=== PATIENT | female | born 1930 | race Caucasian/White ===

== ENCOUNTER 2018-11-23 17:24 | Inpatient (IN) ==
[2018-11-23] MEDS ORDERED: 0.9 % Sodium Chloride 1,000 ML IVC ONE ×2 (18:04→19:02)
[2018-11-23 18:23] LABS: Basophils % 0.3 %; Eosinophils % 0.1 %; Hemoglobin 13.4 g/dL (11.5-15.4); Immature Granulocytes % 0.4 % (0-4); Lymphocytes # 1.3 K/mcL (0.6-4.6); Lymphocytes % 9.7 %; Mean Corpuscular HGB Conc 32.7 g/dL (31.6-35.5); Mean Corpuscular Hemoglobin 30.1 pg (28.0-33.3); Mean Corpuscular Volume 92.1 fL (83.0-100.0); Mean Platelet Volume 11.1 fL (9.4-12.4); Monocytes # 0.8 K/mcL (0.0-1.3); Monocytes % 5.9 %; Neutrophils # 11.4 K/mcL (1.6-8.9); Platelet Count 232 K/mcL (140-400); Red Blood Count 4.45 M/mcL (3.82-4.97); Red Cell Distribution Width 13.3 % (11.5-14.5); Segmented Neutrophils % 83.6 %; White Blood Count 13.6 K/mcL (4.3-11.1)
[2018-11-23 18:36] LABS: Bilirubin,Urine Negative (Negative); Blood,Urine Large (Negative); Clarity,Urine Turbid (Clear); Color,Urine Dark Yellow (Yellow); Glucose,Urine (UA) Normal (Normal); Ketones,Urine 15 mg/dL (Negative); Leukocyte Esterase,Urine Large (Negative); Nitrite,Urine Positive (Negative); Protein,Urine 100 mg/dL (Neg-Trace); Specific Gravity,Urine > 1.030 (1.010-1.025); Urobilinogen,Urine Normal (Normal)
[2018-11-23 18:41] LABS: Bacteria,Urine Many per hpf (None-Few); Hyaline Casts,Urine None Seen per lpf (None-Few); Squamous Epithelial Cell,Urine Many per lpf (None-Few); WBC,Urine TNTC per hpf (0-3)
[2018-11-23 18:52] LABS: RBC,Urine 0-3 per hpf (0-3)
[2018-11-23] MEDS ORDERED: cefTRIAXone 2,000 MG in Water for inj. (sterile) 20 ML IVP ONE (18:52)
[2018-11-23 18:57] LABS: Calcium 10.3 mg/dL (8.6-10.3); Potassium 3.9 mEq/L (3.5-5.1); Troponin I 0.07 ng/mL (< 0.04)
--- NOTE | 2018-11-23 19:07 | Emergency Department Note ---
Disposition Clinical Impression: ANAMARIA (acute kidney injury) Rhabdomyolysis Qualifiers: Rhabdomyolysis type: traumatic Encounter type: initial encounter Qualified Code(s): T79.6XXA - Traumatic ischemia of muscle, initial encounter Fall Qualifiers: Encounter type: initial encounter Qualified Code(s): W19.XXXA - Unspecified fall, initial encounter Urinary tract infection Qualifiers: Urinary tract infection type: site unspecified Hematuria presence: without hematuria Qualified Code(s): N39.0 - Urinary tract infection, site not specified Disposition: Admitted As Inpatient Condition: Fair Time of Disposition: 19:56 Fall HPI - General Chief Complaint: ED Fall Stated Complaint: Fall Time Seen by Provider: 11/23/18 17:32 Source: patient, family, EMS Mode of arrival: EMS Limitations: no limitations Nursing Notes Reviewed: Yes Vital Signs Reviewed: Yes - History of Present Illness HPI Narrative: 88 yo female with no significant past medical history presents to the emergency department after being found on her bedroom floor by her family. Family states that the patient normally communicates with all of her children PIE well throughout the day. They had not heard from her and by this afternoon and b ecame concerned so they went to her house. Patient states that she did not follow-up with the family found her unconscious at the foot of her bed, covered in her own feces. Patient is only complaining of some right leg pain at this time. She denies headache, neck pain, chest pain, shortness of breath, abdominal pain, nausea and vomiting. - Related Data Allergies Allergy/AdvReac Type Severity Reaction Status Date / Time No Known Allergies Allergy Verified 11/23/18 17:58 All systems ED: reviewed and negative except as stated. Review of Systems: As Per HPI Constitutional: Denies: fever, weakness Cardiovascular: Denies: chest pain, palpitations, dyspnea on exertion Respiratory: Denies: cough, dyspnea, wheezes Gastrointestinal: Denies: abdominal pain, nausea, vomiting Genitourinary: Denies: dysuria, hematuria Musculoskeletal: Reports: arthralgia (Right hip/leg). Denies: back pain, neck pain Integumentary: Denies: rash Neurological: Denies: headache, weakness Endocrine: Denies: fatigue Fall PMH - Past Medical History Medical history: Reports: osteoporosis Psychiatric history: Reports: no psych history - Social History Smoking Status: Never smoker Alcohol use: Reports: none Drug use: Reports: none Physical Exam - General Limitations: no limitations General appearance: alert, in no apparent distress - Head Head exam: atraumatic, normocephalic - Eye Eye exam: Present: normal appearance, EOMI - ENT ENT exam: mucous membranes dry - Neck Neck exam: Present: normal inspection. Absent: tenderness, lymphadenopathy - Chest Chest inspection: Present: normal inspection. Absent: tenderness, rash - Respiratory Respiratory exam: Present: normal lung sounds bilaterally. Absent: wheezes - Cardiovascular Cardiovascular exam: Present: regular rate, normal rhythm - Abdominal Exam Abdominal exam: Present: soft, Non-Tender. Absent: distention, guarding, rebound, rigidity - Extremities Exam Extremities exam: Present: other (Tenderness to palpation of the right hip, no pain on movement of the right leg or with palpation of the right femur. Distal pulses intact on all 4 extremities. No evidence of bruising of any of the extremities.) - Back Exam Back exam: Present: normal inspection. Absent: tenderness - Neurological Exam Neurological exam: Present: alert, oriented X3 - Psychiatric Psychiatric exam: Present: normal affect, normal mood - Skin Skin exam: Present: warm, dry, intact Course Vital Signs Temperature 99 F 11/23/18 17:31 Pulse Rate 97 11/23/18 17:31 Respiratory Rate 12 11/23/18 17:31 Blood Pressure 189/73 11/23/18 17:31 O2 Sat by Pulse Oximetry 97 11/23/18 17:31 Temperature 99 F 11/23/18 17:31 Pulse Rate 89 11/23/18 19:23 Respiratory Rate 24 11/23/18 19:23 Blood Pressure 170/81 11/23/18 19:23 O2 Sat by Pulse Oximetry 94 11/23/18 19:23 Oxygen Delivery Oxygen Delivery Room Air Fall - [facility] Narrative Medical decision making narrative: Patient presents after being found down without last known well. She is alert and oriented now and is only complaining of right leg pain. We will obtain CT imaging of the head and neck without contrast and do x-rays of her chest, right hip and right femur due to her complaints of right leg pain. Since she has been down we will also perform cardiac workup with EKG, troponin, basic lab work and at on CPK and urinalysis to try to determine what caused her fall and determine if she is in rhabdomyolysis. Patient will be given a liter fluids at this time. 1909 - patient's troponin is elevated at 0.07, she has never been here before so is undetermined if this is new. CPK is 1500. She has had a slight increase in her creatinine. We will administer another liter of fluids to protect her from her rhabdo. Urinalysis shows signs of a urinary tract infection and the patient will also be given Rocephin. Awaiting imaging results at this time. 1929 - patient's head and neck CT, chest x-ray, right hip x-ray and right femur x-ray do not demonstrate any acute fractures or other injuries. Patient was told of her results and she is agreeable staying for IV hydration and antibiotics for her urinary tract infection. 1954 - patient has been accepted by the hospitalist at this time. - Medical Records Medical records reviewed: Yes I reviewed the patient's medical records. - Lab Data Lab results reviewed: Yes I reviewed the patient's lab results. Result diagrams: 11/23/18 18:05 11/23/18 18:05 Lab Results 11/23/18 11/23/18 11/23/18 Range/Units 18:05 18:05 18:20 WBC 13.6 H (4.3-11.1) K/mcL RBC 4.45 (3.82-4.97) M/mcL Hgb 13.4 (11.5-15.4) g/dL Hct 41.0 (35.3-44.9) % MCV 92.1 (83.0-100.0) fL MCH 30.1 (28.0-33.3) pg MCHC 32.7 (31.6-35.5) g/dL RDW 13.3 (11.5-14.5) % Plt Count 232 (140-400) K/mcL MPV 11.1 (9.4-12.4) fL Immature Gran % 0.4 (0-4) % Seg Neutrophils % 83.6 % Lymphocytes % 9.7 % Monocytes % 5.9 % Eosinophils % 0.1 % Basophils % 0.3 % Neutrophils # 11.4 H (1.6-8.9) K/mcL Lymphocytes # 1.3 (0.6-4.6) K/mcL Monocytes # 0.8 (0.0-1.3) K/mcL Eosinophils # 0.0 (0.0-0.6) K/mcL Basophils # 0.0 (0.0-0.2) K/mcL Sodium 141 (136-145) mEq/L Potassium 3.9 (3.5-5.1) mEq/L Chloride 101 (98-107) mEq/L Carbon Dioxide 23 (23-29) mEq/L BUN 40 H (8-23) mg/dL Creatinine 1.26 H (0.60-1.20) mg/dL Est GFR ( Amer) 49 L (> 60) Est GFR (Non-Af Amer) 40 L (> 60) BUN/Creatinine Ratio 32 H (6-26) Glucose 115 H (70-105) mg/dL Calculated Osmolality 303 H (280-300) Lactic Acid (0.5-2.2) mmol/L Calcium 10.3 (8.6-10.3) mg/dL Creatine Kinase 1508 H (30-223) Units/L Troponin I 0.07 H* (< 0.04) ng/mL Urine Color Dark Yellow (Yellow) Urine Clarity Turbid A (Clear) Urine pH 6.0 (5.0-8.0) pH Units Ur Specific [place] > 1.030 H (1.010-1.025) Urine Protein 100 H (Neg-Trace) mg/dL Urine Glucose (UA) Normal (Normal) mg/dL Urine Ketones 15 H (Negative) mg/dL Urine Blood Large H (Negative) Urine Nitrite Positive A (Negative) Urine Bilirubin Negative (Negative) Urine Urobilinogen Normal (Normal) mg/dL Ur Leukocyte Esterase Large H (Negative) Urine Microscopic RBC 0-3 (0-3) per hpf Urine Microscopic WBC TNTC H (0-3) per hpf Ur Squamous Epith Cells Many H (None-Few) per lpf Urine Bacteria Many H (None-Few) per hpf Hyaline Casts None Seen (None-Few) per lpf Ur Culture Indicated? YES A (NO) 11/23/18 Range/Units 18:23 WBC (4.3-11.1) K/mcL RBC (3.82-4.97) M/mcL Hgb (11.5-15.4) g/dL Hct (35.3-44.9) % MCV (83.0-100.0) fL MCH (28.0-33.3) pg MCHC (31.6-35.5) g/dL RDW (11.5-14.5) % Plt Count (140-400) K/mcL MPV (9.4-12.4) fL Immature Gran % (0-4) % Seg Neutrophils % % Lymphocytes % % Monocytes % % Eosinophils % % Basophils % % Neutrophils # (1.6-8.9) K/mcL Lymphocytes # (0.6-4.6) K/mcL Monocytes # (0.0-1.3) K/mcL Eosinophils # (0.0-0.6) K/mcL Basophils # (0.0-0.2) K/mcL Sodium (136-145) mEq/L Potassium (3.5-5.1) mEq/L Chloride (98-107) mEq/L Carbon Dioxide (23-29) mEq/L BUN (8-23) mg/dL Creatinine (0.60-1.20) mg/dL Est GFR ( Amer) (> 60) Est GFR (Non-Af Amer) (> 60) BUN/Creatinine Ratio (6-26) Glucose (70-105) mg/dL Calculated Osmolality (280-300) Lactic Acid 1.4 (0.5-2.2) mmol/L Calcium (8.6-10.3) mg/dL Creatine Kinase (30-223) Units/L Troponin I (< 0.04) ng/mL Urine Color (Yellow) Urine Clarity (Clear) Urine pH (5.0-8.0) pH Units Ur Specific [place] (1.010-1.025) Urine Protein (Neg-Trace) mg/dL Urine Glucose (UA) (Normal) mg/dL Urine Ketones (Negative) mg/dL Urine Blood (Negative) Urine Nitrite (Negative) Urine Bilirubin (Negative) Urine Urobilinogen (Normal) mg/dL Ur Leukocyte Esterase (Negative) Urine Microscopic RBC (0-3) per hpf Urine Microscopic WBC (0-3) per hpf Ur Squamous Epith Cells (None-Few) per lpf Urine Bacteria (None-Few) per hpf Hyaline Casts (None-Few) per lpf Ur Culture Indicated? (NO) - Radiology Data Radiology results reviewed: Yes I reviewed the patient's radiology results. - EKG Data EKG attestation: Yes I reviewed and interpreted this EKG. EKG results narrative: EKG obtained at 18:09 on 11/23/2018 Heart rate 96 bpm, PA interval 178, QRS duration 91, QT 349, QTC 441 Sinus rhythm with one premature ventricular complex. No signs of ST segment elevations or depressions. No acute T-wave abnormalities. Ultimately unchanged when compared to previous EKG dated 02/13/2014. Attestation Statement - Attestation Attestation: I have seen this patient with the resident physician, I have personally evaluated this patient. I had reviewed the chart and document dictation by the resident physician and aM in agreement with the information documented by the resident physician. Please see documentation by the resident physician for complete chart including past medical history, family medical history, review of systems, current history and physical and laboratory and imaging studies. I was present for all procedures, provided direct supervision for all procedures, was present for the entirety of all procedures and provided direct guidance during the procedures. Please see documentation by the resident physician for any procedures performed. I have reviewed all interpretations of EKGs, and reviewed all EKGs performed on patient's as well. I have also reviewed reports of imaging as provided by radiology. Patient was found today lying on the floor at the end of her bed covered in fe alta, by her family, they contact her every day via email did not hear from her since last night when checked on her today and found her on the floor. The patient does not remember how she got on the floor she does not believe she hit her head she does not even think she fell but she is not sure. On physical examination she is very dehydrated in appearance very dry. Oropharyngeal mucous membranes vital signs are within acceptable limits and cranial nerves are grossly intact. Lungs are clear heart reveals 2/6 systolic murmur no rubs no gallops abdomen is soft and nontender. Some mild tenderness of the right hip region but with normal range of motion without evidence of leg length discrepancy. Normal distal pulses, slightly decreased turgor. No focal neurologic findings. Head CT and cervical spine CT showed no acute findings. Chest x-ray and hip x-ray showed no acute findings. Patient was found have a UTI for which she received IV Rocephin mild leukocytosis of 13,000 no other acute abnormality in CBC, renal panel consistent with slightly increased creatinine of 1.26 up from 0.98, from approximately 3 years ago, nothing to suggest severe acute renal failure, her creatinine is not more than 1-1/2 times elevated from baseline, her total CPK was elevated at 1508 she was given a 2 L bolus of fluids. EKG was a sinus rhythm with no evidence of acute ischemia or dysrhythmia or hyperkalemia. Troponin was borderline at 0.07, most likely related to mild rhabdo, as well as dehydration and UTI, this will require further monitoring. Patient was admitted to the hospital for further evaluation and management of dehydration, elevated total CPK/rhabdomyolysis, UTI with borderline troponin elevation.
[2018-11-23] MEDS ORDERED: *HR* HYDROcodone/Acet 5/325 mg TABLET PO PRN (23:33)
[2018-11-23] MEDS ORDERED: Naloxone 0.4 MG/ML INJ IVP PRN (23:33)
--- NOTE | 2018-11-24 00:31 | Internal Med History&Physical ---
Date of Encounter: 11/23/18 Time of Encounter: 22:45 Internal Medicine - H&P: HPI Chief complaint: syncope; s/p fall Admitted From: Emergency Dept Plans for Post Hospital Care: Home History of present illness: Ms. Cao is an 88 year old female who presents the ER today after family found her on the ground, passed out, and down for an unknown period of time. She was brought to the ER where she had workup including imaging studies, lab data, and urinalysis. Imaging studies did not show any significant pathology and/or any fractures. Labs suggest mild acute kidney injury, rhabdomyolysis, troponin elevation, and UTI. EKG was unremarkable. Given her syncopal spell, rhabdomyolysis, and UTI, she was admitted to hospitalist service. Upon my assessment of the patient, there were several family members present at bedside. Patient is very hard of hearing and appears to be somewhat confused off and on during the conversation. 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 They state that she is only slightly off her baseline presently. Her son who found her is present at the bedside. He states he does not know how long she was down but suspects she was down for roughly 8 or 9 hours. He states she was passed out but easily arousable when he arrived at the home to assess her. She denies falling or injuring herself. However, she cannot recall the events of what led to her on the ground. She denies any sores or pain anywhere other than her chronic back pain. However, she has a little swelling of her lip and a chipped tooth which, according family, appears be new. She does have evidence of UTI, which could be leading to her slight confusion. Neither she nor her family members suggest any focal neurologic deficits. Patient states she normally ambulates at home with a walker and has limited mobility due to her chronic back pain. She denies any chest pain, shortness of breath, numbness, weakness, or paralysis. Past Med Surg Social Fam HX - Past Medical History Attestation: Yes The following information was validated with the patient. Source: patient, obtained from family Medical history: osteoporosis Psychiatric history: no psych history - Past Surgical History Surgical History: no surgical history - Social History Smoking Status: Never smoker Smokeless Tobacco Status: No Alcohol use: none Drug use: none Current living situation: Home - Independent Activity Level: Uses cane/walker Recent Out of Country Travel Within the Last 8 Weeks: No - Family History Mother Living Status: Hx Family Cardiac Disorders: No Hx Family Neurologic Disorders: No Father History Unknown: Yes Living Status: Internal Medicine - H&P: Meds Allergy/AdvReac Type Severity Reaction Status Date / Time No Known Allergies Allergy Verified 11/23/18 17:58 - Constitutional Constitutional: falls (today), no chills, no fever(s) - EENT Eyes: no blurry vision, no change in vision Ears: decreased hearing (chronic), no ear pain, no tinnitus Nose, mouth and throat: no nasal congestion, no sinus pressure, no sore throat - Cardiovascular Cardiovascular ROS IM: syncope, no chest pain, no dyspnea, no dyspnea on exertion, no edema, no irregular heart rhythm, no lightheadedness, no orthopnea, no palpitations - Respiratory Respiratory: no cough, no hemoptysis, no dyspnea on exertion, no wheezing, no chest congestion, no excessive phlegm production, no change in phlegm color - Gastrointestinal Gastrointestinal: no abdominal pain, no diarrhea, no nausea, no vomiting - Genitourinary Genitourinary: dysuria, no flank pain, no hematuria - Musculoskeletal Musculoskeletal ROS IM: no arthralgias, no back pain - Integumentary Integumentary IM: no rash, no jaundice - Neurological Neurological ROS: no disequilibrium, no dizziness, no focal weakness, no frequen t falls, no headache(s), no numbness, no vertigo, no weakness - Psychiatric Psychiatric: no anxiety, no depression - Endocrine Endocrine IM: no polydipsia, no polyuria - Allergic/Immunologic Allergic/Immunologic: no GI upset with certain foods - Constitutional Vitals: Temp Pulse Resp BP Pulse Ox 98.8 F 86 15 184/75 98 11/23/18 22:02 11/23/18 22:02 11/23/18 22:02 11/23/18 22:02 11/23/18 22:02 General appearance: Present: cooperative, A&O X 2, pleasant, no acute distress Exam: very hard of hearing; dehydrated; mildly confused - Head Head exam: Present: atraumatic, normal inspection - Eye Eye exam: Present: EOMI, PERRL. Absent: scleral icterus Pupils: Present: normal accommodation - ENT ENT exam: Present: mucous membranes dry, normal oropharynx Additional comments: mild upper lip swelling; chipped front tooth - Neck Neck exam general surgery: Present: full ROM, supple, trachea midline. Absent: tenderness, nuchal rigidity, thyromegaly - Respiratory Respiratory exam: Present: CTAB. Absent: chest wall tenderness, rales, respiratory distress, rhonchi, wheezes - Cardiovascular Cardiovascular exam: Present: distant heart sounds, RRR, +S1, +S2. Absent: diastolic murmur, JVD, systolic murmur - GI/Abdominal GI/Abdominal exam: Present: normal bowel sounds, soft. Absent: guarding, hepatomegaly, mass, rebound, splenomegaly, tenderness - Extremities Exam Extremities exam: Present: full ROM, normal capillary refill, warm, radial pulses palpable and symmetrical. Absent: calf tenderness, joint swelling, pedal edema, tenderness - Back Exam Back exam: Absent: CVA tenderness (L), CVA tenderness (R) - Neurological Exam Neurological exam: Present: alert, CN II-XII intact, oriented X3, no focal deficits, strengths equal and symetr throughout. Absent: facial droop, speech deficit - Psychiatric Psychiatric exam: Present: normal affect, normal mood - Skin Skin exam: Present: dry, intact, warm Internal Med - H&P Results - Labs CBC & Chem 7: 11/23/18 18:05 11/23/18 18:05 Labs: Short CBC 11/23/18 Range/Units 18:05 WBC 13.6 H (4.3-11.1) K/mcL Hgb 13.4 (11.5-15.4) g/dL Hct 41.0 (35.3-44.9) % Plt Count 232 (140-400) K/mcL Neutrophils # 11.4 H (1.6-8.9) K/mcL BMP 11/23/18 18:05 Sodium 141 Potassium 3.9 Chloride 101 Carbon Dioxide 23 BUN 40 H Creatinine 1.26 H Glucose 115 H Calcium 10.3 Cardiac Enzymes 11/23/18 Range/Units 18:05 Troponin I 0.07 H* (< 0.04) ng/mL Urine 11/23/18 Range/Units 18:20 Urine Color Dark Yellow (Yellow) Urine Clarity Turbid A (Clear) Urine pH 6.0 (5.0-8.0) pH Units Ur Specific [place] > 1.030 H (1.010-1.025) Urine Protein 100 H (Neg-Trace) mg/dL Urine Glucose (UA) Normal (Normal) mg/dL - EKG Data -: EKG Interpreted by Myself - EKG Data Prior EKG available for review: no EKG comments: 11/24/18 00:41 NSR; no acute ST-T changes; PVC - Impressions ITS Impressions Cervical Spine CT 11/23/18 18:03 IMPRESSION: No acute intracranial abnormality. Moderate chronic microvascular disease. Mild to moderate parenchymal volume loss, most pronounced in the bilateral anterior temporal lobes. Opacification of the right mastoid air cells and right middle ear cavity. No acute abnormality in the cervical spine. 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 D/ / Ajit Goetz MD / Ajit Goetz MD Interpreting Provider: Ajit Goetz MD Femur X-Ray 11/23/18 18:03 IMPRESSION: No acute osseous abnormality. D/ / Kiran Huertas MD / Kiran Huertas MD Interpreting Provider: Kiran Huertas MD Head CT 11/23/18 18:03 IMPRESSION: No acute intracranial abnormality. Moderate chronic microvascular disease. Mild to moderate parenchymal volume loss, most pronounced in the bilateral anterior temporal lobes. Opacification of the right mastoid air cells and right middle ear cavity. No acute abnormality in the cervical spine. 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 D/ / Ajit Goetz MD / jAit Goetz MD Interpreting Provider: Ajit Goetz MD Hip X-Ray 11/23/18 18:03 IMPRESSION: No acute findings. D/ / 11/23/2018 19:11:34 Kyree Mata MD / alcon Interpreting Provider: Kyree Mata MD Chest X-Ray 11/23/18 18:04 IMPRESSION: No acute findings. D/ / 11/23/2018 19:11:34 Kyree Mata MD / alcon Interpreting Provider: Kyree Mata MD - Diagnostic Studies Chest x-ray Status: image reviewed by me (negative) - Assessment and Plan (1) Syncope Current Visit: Yes Status: Acute Assessment and plan: 1. Will trend troponins, EKG's, and monitor on telemetry. 2. Will order ECHO and Carotid Dopplers. 3. Will monitor serial glucose checks as well. Qualifiers: Syncope type: unspecified Qualified Code(s): R55 - Syncope and collapse (2) ANAMARIA (acute kidney injury) Current Visit: Yes Status: Acute Assessment and plan: 1. Will hydrate with IV and oral fluids. 2. Monitor renal function and consult nephrology if renal function fails to improve and/or worsens. (3) Rhabdomyolysis Current Visit: Yes Status: Acute Assessment and plan: 1. IVF hydration as above. 2. Will trend Creatinine Kinase and CK MB levels. Qualifiers: Rhabdomyolysis type: traumatic Encounter type: initial encounter Qualified Code(s): T79.6XXA - Traumatic ischemia of muscle, initial encounter (4) Urinary tract infection Current Visit: Yes Status: Acute Assessment and plan: 1. Urine culture collected in ER. 2. Will continue IV Rocephin and monitor urine culture results. Qualifiers: Urinary tract infection type: site unspecified Hematuria presence: without hematuria Qualified Code(s): N39.0 - Urinary tract infection, site not specified (5) DVT prophylaxis Current Visit: Yes Status: Acute Assessment and plan: 1. Heparin SQ.
[2018-11-24] MEDS: 0.9 % Sodium Chloride 1,000 ML IVC SCH ×2 (00:44→08:33)
[2018-11-24 01:33] LABS: Basophils % 0.2 %; Hematocrit 37.5 % (35.3-44.9); Hemoglobin 12.1 g/dL (11.5-15.4); Immature Granulocytes % 0.4 % (0-4); Lymphocytes # 1.8 K/mcL (0.6-4.6); Lymphocytes % 14.6 %; Mean Corpuscular HGB Conc 32.3 g/dL (31.6-35.5); Mean Corpuscular Hemoglobin 29.9 pg (28.0-33.3); Mean Corpuscular Volume 92.6 fL (83.0-100.0); Mean Platelet Volume 11.1 fL (9.4-12.4); Monocytes # 0.8 K/mcL (0.0-1.3); Monocytes % 6.6 %; Neutrophils # 9.5 K/mcL (1.6-8.9); Platelet Count 189 K/mcL (140-400); Red Blood Count 4.05 M/mcL (3.82-4.97); Red Cell Distribution Width 13.4 % (11.5-14.5); Segmented Neutrophils % 78.2 %; White Blood Count 12.2 K/mcL (4.3-11.1)
[2018-11-24 01:39] LABS: Prothrombin Time 11.8 Seconds (9.4-12.1)
[2018-11-24 01:42] LABS: Activated Partial Thrombo Time 24.9 Seconds (26.0-36.0)
[2018-11-24 01:57] LABS: Alanine Aminotransferase 22 Units/L (7-52); Albumin 3.8 g/dL (3.5-5.7); Albumin/Globulin Ratio 1.5 (1.1-2.2); Alkaline Phosphatase 69 Units/L (34-104); Aspartate Amino Transferase 47 Units/L (13-39); BUN/Creatinine Ratio 35 (6-26); Bilirubin,Total 0.8 mg/dL (0.3-1.0); Blood Urea Nitrogen 36 mg/dL (8-23); Carbon Dioxide 18 mEq/L (23-29); Chloride 107 mEq/L (98-107); Chol/HDL Ratio 4.1 (0-4.9); Cholesterol 218 mg/dL (< 200); Creatine Kinase 1175 Units/L (30-223); Globulin 2.5 g/dL (2.4-3.5); Glucose 98 mg/dL (70-105); HDL Cholesterol 53 mg/dL (40-59); LDL Cholesterol,Calculated 143 mg/dL (0-99); Osmolality,Calculated 298 (280-300); Potassium 3.6 mEq/L (3.5-5.1); Sodium 140 mEq/L (136-145); Total Protein 6.3 g/dL (6.4-8.9); Triglycerides 110 mg/dL (< 150); eGFR For African Americans > 60 (> 60); eGFR For Non-African Americans 51 (> 60)
[2018-11-24] MEDS: *HR* Heparin 5,000 UNIT/ML VIAL SQ SCH ×3 (06:22→18:37)
[2018-11-24] MEDS: cefTRIAXone 1,000 MG in Water for inj. (sterile) 10 ML IVP SCH (08:33)
[2018-11-24 09:03] LABS: Troponin I 0.07 ng/mL (< 0.04)
--- NOTE | 2018-11-24 12:48 | Electrocardiograph Report ---
[address] [place], [place] [address] Test Date: 2018-11-23 Pat Name: Gissell Cao Department: [id number] Room: 3A12 Gender: F [employer] Work[employer]: : 1930 Requested By: Eleni Cao Order Number: [id number] Reading MD: Kenzie Keith Measurements Intervals [place] Rate: 96 P: 80 W[place]: 178 QRS: 53 QRSD: 91 T: 46 QT: 349 QTc: 441 Interpretive Statements Sinus rhythm Ventricular premature complex Consider left ventricular hypertrophy Electronically Signed On 11-24-2018 12:46:34 EDT by Kenzie Keith
--- NOTE | 2018-11-24 16:01 | Event Note ---
Date of Encounter: 11/24/18 Time of Encounter: 15:57 Troponin trending up; 0.07--> 0.22-->0.54. Pt denies chest pain or SOB. Daughter and son at bedside and explained results to them. Echo results below and EKG on admission neg. Discussed with cardiology and will see pt in consult. Echo Impressions: Mild pulmonic regurgitation. LVEF 65%. Mild concentric hypertrophy of the left ventricle. mildly dilated lv cavity There is evidence of mild diastolic dysfunction of the left ventricle. Moderately enlarged left atrial size. Normal right ventricular size and function. Normal right atrial size. Mild aortic regurgitation. sclerotic aortic valve with mild restriction Mild mitral regurgitation. MAC Mild-moderate tricuspid regurgitation. Estimated RVSP was 23 mmHg.
[2018-11-25 05:10] LABS: Basophils % 0.3 %; Eosinophils # 0.1 K/mcL (0.0-0.6); Eosinophils % 1.3 %; Hematocrit 33.2 % (35.3-44.9); Hemoglobin 10.6 g/dL (11.5-15.4); Immature Granulocytes % 0.3 % (0-4); Lymphocytes # 2.8 K/mcL (0.6-4.6); Lymphocytes % 30.6 %; Mean Corpuscular HGB Conc 31.9 g/dL (31.6-35.5); Mean Corpuscular Hemoglobin 29.9 pg (28.0-33.3); Mean Corpuscular Volume 93.8 fL (83.0-100.0); Mean Platelet Volume 11.4 fL (9.4-12.4); Monocytes # 0.6 K/mcL (0.0-1.3); Monocytes % 6.9 %; Neutrophils # 5.5 K/mcL (1.6-8.9); Platelet Count 169 K/mcL (140-400); Red Blood Count 3.54 M/mcL (3.82-4.97); Red Cell Distribution Width 13.6 % (11.5-14.5); Segmented Neutrophils % 60.6 %; White Blood Count 9.1 K/mcL (4.3-11.1)
[2018-11-25 05:27] LABS: Albumin 3.5 g/dL (3.5-5.7); BUN/Creatinine Ratio 36 (6-26); Blood Urea Nitrogen 34 mg/dL (8-23); Calcium 8.7 mg/dL (8.6-10.3); Carbon Dioxide 21 mEq/L (23-29); Chloride 111 mEq/L (98-107); Glucose 94 mg/dL (70-105); Osmolality,Calculated 299 (280-300); Phosphorous 2.2 mg/dL (2.7-4.5); Potassium 3.3 mEq/L (3.5-5.1); Sodium 141 mEq/L (136-145); eGFR For African Americans > 60 (> 60); eGFR For Non-African Americans 56 (> 60)
[2018-11-25] MEDS: *HR* Heparin 5,000 UNIT/ML VIAL SQ SCH ×2 (06:04→17:51)
[2018-11-25] MEDS: cefTRIAXone 1,000 MG in Water for inj. (sterile) 10 ML IVP SCH (09:50)
[2018-11-25 11:12] LABS: CKMB Percent NOT DONE (0.0-5.0)
--- NOTE | 2018-11-25 13:04 | Cardiology Consult Note ---
<Dheeraj Mars - Last Filed: 11/25/18 13:21> Date of Encounter: 11/25/18 Time of Encounter: 13:00 Assessment and Plan (1) Fall Current Visit: Yes Status: Acute Per Cardiology: Patient found on the floor with mental status changes I family. Creatinine kinase noted to be elevated at 1175. No acute trauma noted on scans. Qualifiers: Encounter type: initial encounter Qualified Code(s): W19.XXXA - Unspecified fall, initial encounter (2) ANAMARIA (acute kidney injury) Current Visit: Yes Status: Acute Per Cardiology: Presented with presumed mild AK I, has no previous creatinine noted. Appears improving. (3) HTN (hypertension) Current Visit: Yes Status: Acute Per Cardiology: Systolic blood pressures elevated in the 180s to 190s on arrival. Slightly better controlled. We will add low-dose beta bud. Qualifiers: Hypertension type: essential hypertension Qualified Code(s): I10 - Ess ential (primary) hypertension (4) Urinary tract infection Current Visit: Yes Status: Acute Per Cardiology: Being managed by primary serviced. On antibiotics. Qualifiers: Urinary tract infection type: site unspecified Hematuria presence: without hematuria Qualified Code(s): N39.0 - Urinary tract infection, site not specified (5) Elevated troponin I measurement Current Visit: Yes Status: Acute Per Cardiology: Troponin elevations with peak of 0.54 and now downward trend in setting of mild AK I, UTI, fall with rhabdomyolysis, and hypertensive urgency. Echo shows EF preserved. Chest pain-free. Do not suspect non-STEMI, suspect type to demand ischemia, no cardiac rehabilitation warranted. I had lengthy discussion with patient and family and agreeable to outpatient follow-up. No further cardiac evaluation warranted during inpatient stay. We will discuss review with Dr. Patel. Cardiology signing off, reconsult as needed, follow-up arranged. All questions answered. Patient and family verbalized understanding and agreed with plan. Discussion w patient/family: The assessment and plan as outlined above was discussed with the patient and/or family members who expressed understanding and agreement. All questions were answered. Thank you for involving us in the care of your patient. Please call with any questions. History of Present Illness Consult date: 11/25/18 Consult reason: Tropnonin Chief complaint: Patient Unsure, Family reports fall History of present illness: Ms. Cao is a 88 year old female with no really known medical history. Cardiology consult for elevated troponin. Patient seen with family at bedside. They indicate patient found on the floor with worsening confusion from baseline. They deny any awareness to chest pain, short of breath, palpitations prior to event. Patient currently alert and oriented [address] Did not know the year. She is hard of hearing. She denies any chest pain, shortness of breath, palpitations currently. Patient pleasant and cooperative. No acute trauma noted. Family denies any past history of CAD. Reports currently at her baseline mental status. Past Med Surg Social Fam HX - Past Medical History Attestation: Yes The following information was validated with the patient. Source: patient, old records reviewed, obtained from family Medical history: osteoporosis Psychiatric history: no psych history - Past Surgical History Surgical History: no surgical history - Social History Smoking Status: Never smoker Smokeless Tobacco Status: No Alcohol use: none Drug use: none - Family History Mother Living Status: Hx Family Cardiac Disorders: No Hx Family Neurologic Disorders: No Father History Unknown: Yes Living Status: Medications and Allergies No Known Home Drugs 11/24/18 [History] Allergy/AdvReac Type Severity Reaction Status Date / Time No Known Allergies Allergy Verified 11/24/18 16:46 All Systems Review: The remainder of the systems were reviewed and are negative - Constitutional Constitutional: other (fall) - Cardiovascular Cardiovascular: as per HPI - Neurological Neurological: other (mental status changes) Physical Examination Vital Signs, Last 4 Hours Temp Pulse Resp BP Pulse Ox 11/25/18 12:15 81 183/69 11/25/18 11:14 98.1 F 78 18 198/82 95 General: Conversant, No Apparent Distress HEENT: Atraumatic, Normocephaly, Mucus Membranes Moist, Other (Heart appearing) Neck: No JVD, Normal carotid pulses Cardiac: Reg Rate and Rhythm, Normal S1 and S2, No Murmur Lungs: Normal Breath Sounds, No Wheeze, Rales, Rhonchi Neuro: Alert and responsive, No focal deficits noted, Other (Alert to person and place) Abdomen: Soft, Non-Tender Skin: No rashes noted on visualized skin Musculoskeletal: No Chest Wall Tenderness Extremities: No Clubbing, No Cyanosis, No Edema, Normal Pulses Results 11/25/18 04:57 11/25/18 04:57 Lab Results Selected Entries 11/23/18 17:31 11/23/18 18:18 Blood Pressure 189/73 196/76 Laboratory Tests 11/23/18 11/23/18 11/23/18 18:05 18:05 18:20 WBC 13.6 H Hgb 13.4 Hct 41.0 INR Creatinine 1.26 H Est GFR (Non-Af Amer) 40 L Magnesium AST ALT Creatine Kinase LDL Cholesterol, Calc Urine Blood Large H Urine Nitrite Positive A Ur Leukocyte Esterase Large H Ur Culture Indicated? YES A 11/24/18 11/24/18 11/25/18 00:44 00:44 04:57 WBC 9.1 Hgb 10.6 L D Hct 33.2 L INR 1.0 Creatinine Est GFR (Non-Af Amer) Magnesium 2.0 AST 47 H ALT 22 Creatine Kinase 1175 H LDL Cholesterol, Calc 143 H Urine Blood Urine Nitrite Ur Leukocyte Esterase Ur Culture Indicated? 11/25/18 04:57 WBC Hgb Hct INR Creatinine 0.95 Est GFR (Non-Af Amer) 56 L Magnesium AST ALT Creatine Kinase LDL Cholesterol, Calc Urine Blood Urine Nitrite Ur Leukocyte Esterase Ur Culture Indicated? ITS Impressions Cervical Spine CT 11/23/18 18:03 IMPRESSION: No acute intracranial abnormality. Moderate chronic microvascular disease. Mild to moderate parenchymal volume loss, most pronounced in the bilateral anterior temporal lobes. Opacification of the right mastoid air cells and right middle ear cavity. No acute abnormality in the cervical spine. 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 D/ / Ajit Goetz MD / Ajit Goetz MD Interpreting Provider: Ajit Goetz MD Femur X-Ray 11/23/18 18:03 IMPRESSION: No acute osseous abnormality. D/ / Kiran Huertas MD / Kiran Huertas MD Interpreting Provider: Kiran Huertas MD Head CT 11/23/18 18:03 IMPRESSION: No acute intracranial abnormality. Moderate chronic microvascular disease. Mild to moderate parenchymal volume loss, most pronounced in the bilateral anterior temporal lobes. Opacification of the right mastoid air cells and right middle ear cavity. No acute abnormality in the cervical spine. 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 D/ / Ajit Goetz MD / Ajit Goetz MD Interpreting Provider: Ajit Goetz MD Hip X-Ray 11/23/18 18:03 IMPRESSION: No acute findings. D/ / 11/23/2018 19:11:34 Kyree Mata MD / alcon Interpreting Provider: Kyree Mata MD Chest X-Ray 11/23/18 18:04 IMPRESSION: No acute findings. D/ / 11/23/2018 19:11:34 Kyree Mata MD / alcon Interpreting Provider: Kyree Mata MD Echocardiogram 11/24/18 23:33 Impressions: Mild pulmonic regurgitation. LVEF 65%. Mild concentric hypertrophy of the left ventricle. mildly dilated lv cavity There is evidence of mild diastolic dysfunction of the left ventricle. Moderately enlarged left atrial size. Normal right ventricular size and function. Normal right atrial size. Mild aortic regurgitation. sclerotic aortic valve with mild restriction Mild mitral regurgitation. MAC Mild-moderate tricuspid regurgitation. Estimated RVSP was 23 mmHg. Findings: Active Medications Acetaminophen (Tylenol) 650 mg PO Q6H PRN PRN Reason: Mild Pain/Fever Stop: 05/25/19 23:34 Hydrocodone Bitart/Acetaminophen ([place] 5-325 Mg) 1 tab PO Q6H PRN PRN Reason: Moderate Pain Stop: 05/25/19 23:34 Heparin Sodium (Porcine) (Heparin) 5,000 unit SQ Q12HCO SESAR Stop: 05/26/19 06:01 Last Admin: 11/25/18 06:04 Dose: 5,000 unit Documented by: Hydralazine HCl (Hydralazine) 10 mg IVP Q6HR PRN PRN Reason: Hypertension Stop: 05/26/19 01:07 Last Admin: 11/24/18 01:20 Dose: 10 mg Documented by: Ceftriaxone Sodium 1,000 mg/ (Sterile Water) 10 mls @ 600 mls/hr IVP DAILY SESAR Stop: 05/26/19 09:01 Last Admin: 11/25/18 09:50 Dose: 600 mls/hr Documented by: Naloxone HCl (Narcan) 0.4 mg IVP Q2MPRN PRN PRN Reason: SEE COMMENTS Stop: 05/25/19 23:34 Senna (Senna) 8.6 mg PO BID SESAR Stop: 05/27/19 21:01 - Imaging and Cardiology Echo: report reviewed - EKG Interpretation EKG results cardiology: personally reviewed (Sinus rhythm and PVCs), normal ECG, sinus rhythm Consult Discharge Plan - Plan Referrals: Wyatt Nails MD [Partnered Physician] - <Tej Patel A - Last Filed: 11/25/18 22:50> Date of Encounter: 11/25/18 - Attending Attestation I have personally performed a face to face evaluation on this patient. I have reviewed and agree with the documented findings and care plan as documented by the PROBATION WORKER. History and Exam by me shows: Patient admitted status post fall in the setting of UTI ,with mildly elevated troponin which is trending down, as well as elevated CK. This is likely due to rhabdomyolysis. Recommend rehydration. Fall precautions. Echo shows preserved ejection fraction with mild to moderate TR and mild AI. These will be monitored clinically and with yearly echocardiogram Tej Vasquez MD FAC Assessment and Plan Discussion w patient/family: The assessment and plan as outlined above was discussed with the patient and/or family members who expressed understanding and agreement. All questions were answered. Thank you for involving us in the care of your patient. Please call with any questions. History of Present Illness History of present illness: Ms. Cao is a 88 year old female All Systems Review: The remainder of the systems were reviewed and are negative Physical Examination Vital Signs, Last 4 Hours Temp Pulse Resp BP Pulse Ox 11/25/18 19:06 98.3 F 77 14 148/74 94 Results 11/25/18 04:57 11/25/18 04:57 Lab Results 11/25/18 11/25/1819 04:57 04:57 04:57 WBC 9.1 Hgb 10.6 L D Hct 33.2 L Plt Count 169 Sodium 141 Potassium 3.3 L Chloride 111 H Carbon Dioxide 21 L BUN 34 H Creatinine 0.95 Glucose 94 Calcium 8.7 Troponin I 0.31 H*
--- NOTE | 2018-11-25 17:28 | Discharge Summary ---
- NOTES TO OUTPATIENT PROVIDER Notes to Outpatient Provider: PCP in 5 to 7 days Orders not resulted at time of discharge: Pending orders out pt 11/28/18 04:00 CK [Creatine Kinase] AM 0400 Date of Encounter: 11/25/18 Time of Encounter: 17:26 - Discharge Diagnosis (1) Rhabdomyolysis Priority: Primary Status: Acute Assessment and Plan: 1. Pt responded to IVF hydration as above. 2. Creatinine Kinase and CK MB levels. Qualifiers: Rhabdomyolysis type: traumatic Encounter type: initial encounter Qualified Code(s): T79.6XXA - Traumatic ischemia of muscle, initial encounter (2) ANAMARIA (acute kidney injury) Status: Acute (3) Urinary tract infection Status: Acute Qualifiers: Urinary tract infection type: site unspecified Hematuria presence: without hematuria Qualified Code(s): N39.0 - Urinary tract infection, site not specified (4) Syncope Status: Acute Qualifiers: Syncope type: unspecified Qualified Code(s): R55 - Syncope and collapse (5) DVT prophylaxis Status: Acute Hospital course: Ms. Cao is a 88 year old female - Time Spent with Patient Total time spent providing and/or coordinating discharge services: - Discharge Medications Prescriptions: No Action No Known Home Drugs 1 each .ROUTE AD each Home Medications: No Known Home Drugs 11/24/18 [History] Allergies/Adverse Reactions: Allergy/AdvReac Type Severity Reaction Status Date / Time No Known Allergies Allergy Verified 11/24/18 16:46 Date of admission: 11/24/18 12:48 Primary care physician: PCP NONE Consults: 11/23/18 22:24 Consult to Multifocal Lens Inspector [CONS] Routine Reason for SW Consult: possible need for home health 11/23/18 23:43 Consult to Occupational Therapy [CONS] Routine Comment: Evaluate, develop and implement POC Reason for Consult: fall at home, lives alone Does patient have active BEDREST order?: No Is patient medically & hemodynamically stable?: Yes Consult to Physical Therapy [CONS] Routine Comment: Evaluate, develop and implement POC Reason for Consult: fall at home, lives alone Does patient have active BEDREST order?: No Is patient medically & hemodynamically stable?: Yes 11/24/18 15:39 Consult to Cardiology [CONS] Routine Comment: Consulting Provider: Cardiology Sowmya Reason for Consult: elevated troponin ? NSTEMI Call Completed: Yes Discharging clinician: Suzanne Marte Anticipated date of discharge: 11/25/18 - Constitutional Vitals: Temp Pulse Resp BP Pulse Ox 97.9 F 76 18 151/70 96 11/25/18 16:11 11/25/18 16:11 11/25/18 16:11 11/25/18 16:11 11/25/18 16:11 General appearance: Present: cooperative, A&O X 2, pleasant, no acute distress - Patient Status Condition: Fair - Discharge Instructions Follow Up With: Wyatt Nails MD [Partnered Physician] -
--- NOTE | 2018-11-25 17:33 | Internal Med Progress Note ---
Hospitalist Progress Note - Encounter Date of Encounter: 11/25/18 Time of Encounter: 17:31 - Subjective Interval History: Pt denies fever or chills. She denies /V or diarrhea. She denies CP or SOB. Pt refuses to get PCP and hence cannot be set up for [facility] services. - Exam Vitals: Temp Pulse Resp BP Pulse Ox 97.9 F 76 18 151/70 96 11/25/18 16:11 11/25/18 16:11 11/25/18 16:11 11/25/18 16:11 11/25/18 16:11 Exam: General appearance: Present: cooperative, A&O X 3, pleasant, no acute distress Exam: very hard of hearing; dehydrated; mildly confused Head exam: Present: atraumatic, normal inspection Eye exam: Present: EOMI, PERRL. Absent: scleral icterus Pupils: Present: normal accommodation ENT exam: Present: mucous membranes dry, normal oropharynx Additional comments: chipped front tooth Neck exam general surgery: Present: full ROM, supple, trachea midline. Absent: tenderness, nuchal rigidity, thyromegaly Respiratory exam: Present: CTAB. Absent: chest wall tenderness, rales, respiratory distress, rhonchi, wheezes Cardiovascular exam: Present: distant heart sounds, RRR, +S1, +S2. Absent: diastolic murmur, JVD, systolic murmur GI/Abdominal exam: Present: normal bowel sounds, soft. Absent: guarding, hepatomegaly, mass, rebound, splenomegaly, tenderness Extremities exam: Present: full ROM, normal capillary refill, warm, radial pulses palpable and symmetrical. Absent: calf tenderness, joint swelling, pedal edema, tenderness. Back exam: Absent: CVA tenderness (L), CVA tenderness (R) Neurological exam: Present: alert, CN II-XII intact, oriented X3, no focal deficits, strengths equal and symetr throughout. Absent: facial droop, speech deficit Psychiatric exam: Present: normal affect, normal mood Skin exam: Present: dry, intact, warm - Assessment and Plan (1) Rhabdomyolysis Current Visit: Yes Status: Acute Assessment and Plan: 1. Pt responded to IVF hydration as above. 2. Creatinine Kinase and CK MB levels trending down. 3. Will reassess in am. (2) Syncope Current Visit: Yes Status: Acute Assessment and Plan: Troponins trended up initially so cardiology was consulted. Cardiology states no further recommendations at this time. Echo showed preserved EF and EKG's did not show any acute changes. Carotid Dopplers showing 60-79% bilateral ICA stenosis. Will consult cardio-vascular surgeon to see in am. Monitoring serial glucose checks. (3) ANAMARIA (acute kidney injury) Current Visit: Yes Status: Acute Assessment and Plan: 1. Pt hydrated with IV and oral fluids. 2. Renal function improved. Cr 1.26--> 1.03--> 0.95 (4) Urinary tract infection Current Visit: Yes Status: Acute Assessment and Plan: 1. Urine culture collected in ER. 2. On IV Rocephin but urine culture results showing normal results. Will DC Rocephin 11/26/18. 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 Cao is an 88 year old female who presents the ER today after family found her on the ground, passed out, and down for an unknown period of time. She was brought to the ER where she had workup including imaging studies, lab data, and urinalysis. Imaging studies did not show any significant pathology and/or any fractures. Labs suggest mild acute kidney injury, rhabdomyolysis, troponin elevation, and UTI. EKG was unremarkable. Given her syncopal spell, rhabdomyolysis, and UTI, she was admitted to hospitalist service. Upon my assessment of the patient, there were several family members present at bedside. Patient is very hard of hearing and appears to be somewhat confused off and on during the conversation. 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 They state that she is only slightly off her baseline presently. Her son who found her is present at the bedside. He states he does not know how long she was down but suspects she was down for roughly 8 or 9 hours. He states she was passed out but easily arousable when he arrived at the home to assess her. She denies falling or injuring herself. However, she cannot recall the events of what led to her on the ground. She denies any sores or pain anywhere other than her chronic back pain. However, she has a little swelling of her lip and a chipped tooth which, according family, appears be new. She does have evidence of UTI, which could be leading to her slight confusion. Neither she nor her family members suggest any focal neurologic deficits. Patient states she normally ambulates at home with a walker and has limited mobility due to her chronic back pain. She denies any chest pain, shortness of breath, numbness, weakness, or paralysis. - Time Spent with Patient Total time spent is greater than 50% in coordination of care (as documented) at patient's floor/unit and/or counseling patient: less than 15 minutes Plan of Care Discussed with: patient Internal Medicine: Result - Labs CBC & Chem 7: 11/25/18 04:57 11/25/18 04:57 Labs: Short CBC 11/25/18 Range/Units 04:57 WBC 9.1 (4.3-11.1) K/mcL Hgb 10.6 L D (11.5-15.4) g/dL Hct 33.2 L (35.3-44.9) % Plt Count 169 (140-400) K/mcL Neutrophils # 5.5 (1.6-8.9) K/mcL BMP 11/25/18 04:57 Sodium 141 Potassium 3.3 L Chloride 111 H Carbon Dioxide 21 L BUN 34 H Creatinine 0.95 Glucose 94 Calcium 8.7 Cardiac Enzymes 11/24/18 11/24/18 11/25/18 Range/Units 00:44 21:43 04:57 CK-MB (CK-2) 8.2 H (0.0-5.0) ug/L Troponin I 0.41 H* 0.31 H* (< 0.04) ng/mL Liver Function 11/25/18 Range/Units 04:57 Albumin 3.5 (3.5-5.7) g/dL - ABG Interpretation ABG results: PT/INR, D-dimer PT 11.8 Seconds (9.4-12.1) 11/24/18 00:44 Consult Discharge Plan - Plan Referrals: Wyatt Nails MD [Partnered Physician] - (1) Rhabdomyolysis Qualifiers: Rhabdomyolysis type: traumatic Encounter type: initial encounter Qualified Code(s): T79.6XXA - Traumatic ischemia of muscle, initial encounter (2) Syncope Qualifiers: Syncope type: unspecified Qualified Code(s): R55 - Syncope and collapse (4) Urinary tract infection Qualifiers: Urinary tract infection type: site unspecified Hematuria presence: without hematuria Qualified Code(s): N39.0 - Urinary tract infection, site not specified
[2018-11-25] MEDS ORDERED: Melatonin 3 MG TABLET PO PRN (20:04)
[2018-11-25] MEDS: Sennosides 8.6 MG TABLET PO SCH (21:08)
[2018-11-26] MEDS: *HR* Heparin 5,000 UNIT/ML VIAL SQ SCH ×2 (05:33→17:01)
[2018-11-26] MEDS: Acetaminophen 325 MG TABLET PO PRN (05:42)
[2018-11-26 06:27] LABS: Basophils % 0.2 %; Eosinophils # 0.3 K/mcL (0.0-0.6); Eosinophils % 3.4 %; Hematocrit 37.6 % (35.3-44.9); Immature Granulocytes % 0.2 % (0-4); Lymphocytes # 3.5 K/mcL (0.6-4.6); Mean Corpuscular HGB Conc 31.9 g/dL (31.6-35.5); Mean Corpuscular Hemoglobin 30.2 pg (28.0-33.3); Mean Corpuscular Volume 94.7 fL (83.0-100.0); Mean Platelet Volume 11.4 fL (9.4-12.4); Monocytes # 0.6 K/mcL (0.0-1.3); Monocytes % 7.2 %; Neutrophils # 3.7 K/mcL (1.6-8.9); Platelet Count 167 K/mcL (140-400); Red Blood Count 3.97 M/mcL (3.82-4.97); Red Cell Distribution Width 13.4 % (11.5-14.5)
[2018-11-26 06:50] LABS: Albumin 3.7 g/dL (3.5-5.7); BUN/Creatinine Ratio 26 (6-26); Blood Urea Nitrogen 24 mg/dL (8-23); Calcium 8.9 mg/dL (8.6-10.3); Carbon Dioxide 23 mEq/L (23-29); Chloride 105 mEq/L (98-107); Creatine Kinase 835 Units/L (30-223); Glucose 88 mg/dL (70-105); Osmolality,Calculated 291 (280-300); Phosphorous 1.9 mg/dL (2.7-4.5); Potassium 3.7 mEq/L (3.5-5.1); Sodium 139 mEq/L (136-145); eGFR For African Americans > 60 (> 60); eGFR For Non-African Americans 58 (> 60)
[2018-11-26] MEDS: Sennosides 8.6 MG TABLET PO SCH ×2 (08:46→19:51)
[2018-11-26] MEDS: cefTRIAXone 1,000 MG in Water for inj. (sterile) 10 ML IVP SCH (08:52)
[2018-11-26] MEDS: 0.9 % Sodium Chloride 1,000 ML IVC SCH (12:53)
--- NOTE | 2018-11-26 14:38 | Internal Med Progress Note ---
Hospitalist Progress Note - Encounter Date of Encounter: 11/26/18 Time of Encounter: 14:34 - Subjective Interval History: Pt lost her hearing aide this morning. Family found it under the bed. She denies fever, chills, N/V or diarrhea. She denies chest pain or SOB - Exam Vitals: Temp Pulse Resp BP Pulse Ox 98.3 F 73 15 176/68 95 11/26/18 06:37 11/26/18 06:37 11/26/18 06:37 11/26/18 06:37 11/26/18 06:37 Exam: General appearance: Present: cooperative, A&O X 3, pleasant, no acute distress Exam: very hard of hearing; dehydrated; mildly confused Head exam: Present: atraumatic, normal inspection Eye exam: Present: EOMI, PERRL. Absent: scleral icterus Pupils: Present: normal accommodation ENT exam: Present: mucous membranes dry, normal oropharynx Additional comments: chipped front tooth Neck exam general surgery: Present: full ROM, supple, trachea midline. Absent: tenderness, nuchal rigidity, thyromegaly Respiratory exam: Present: CTAB. Absent: chest wall tenderness, rales, respiratory distress, rhonchi, wheezes Cardiovascular exam: Present: distant heart sounds, RRR, +S1, +S2. Absent: diastolic murmur, JVD, systolic murmur GI/Abdominal exam: Present: normal bowel sounds, soft. Absent: guarding, hepatomegaly, mass, rebound, splenomegaly, tenderness Extremities exam: Present: full ROM, normal capillary refill, warm, radial pulses palpable and symmetrical. Absent: calf tenderness, joint swelling, pedal edema, tenderness. Back exam: Absent: CVA tenderness (L), CVA tenderness (R) Neurological exam: Present: alert, CN II-XII intact, oriented X3, no focal deficits, strengths equal and symetr throughout. Absent: facial droop, speech deficit Psychiatric exam: Present: normal affect, normal mood Skin exam: Present: dry, intact, warm - Assessment and Plan (1) Rhabdomyolysis Current Visit: Yes Status: Acute Assessment and Plan: Pt responded to IVF hydration as above. Creatinine Kinase 1508 -->1175--> 487 -->835. Was going to discharge pt but CK bumped today. Will give IVf and reassess in am. Troponin trended down. Will reassess in am. (2) Syncope Current Visit: Yes Status: Acute Assessment and Plan: Troponins trended up initially so cardiology was consulted. Foollow up troponin trended down. Cardiology states no further recommendations at this time. Echo showed preserved EF and EKG's did not show any acute changes. Monitoring serial glucose checks. (3) ANAMARIA (acute kidney injury) Current Visit: Yes Status: Acute Assessment and Plan: 1. Pt hydrated with IV and oral fluids. 2. Renal function improved. Cr 1.26--> 1.03--> 0.95-->0.91 (4) Urinary tract infection Current Visit: Yes Status: Acute Assessment and Plan: 1. Urine culture collected in ER. 2. On IV Rocephin but urine culture results showing normal results. Will DC Rocephin 11/26/18. (5) Carotid stenosis, bilateral Current Visit: Yes Status: Acute Assessment and Plan: Severe bilateral carotid stenosis. Carotid Dopplers showing 60-79% bilateral ICA stenosis. 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 Cao is an 88 year old female who presents the ER today after family found her on the ground, passed out, and down for an unknown period of time. She was brought to the ER where she had workup including imaging studies, lab data, and urinalysis. Imaging studies did not show any significant pathology and/or any fractures. Labs suggest mild acute kidney injury, rhabdomyolysis, troponin elevation, and UTI. EKG was unremarkable. Given her syncopal spell, rhabdomyolysis, and UTI, she was admitted to hospitalist service. - Time Spent with Patient Total time spent is greater than 50% in coordination of care (as documented) at patient's floor/unit and/or counseling patient: less than 15 minutes Plan of Care Discussed with: patient Internal Medicine: Result - Labs CBC & Chem 7: 11/26/18 06:08 11/26/18 06:08 Labs: Short CBC 11/26/18 Range/Units 06:08 WBC 8.0 (4.3-11.1) K/mcL Hgb 12.0 (11.5-15.4) g/dL Hct 37.6 (35.3-44.9) % Plt Count 167 (140-400) K/mcL Neutrophils # 3.7 (1.6-8.9) K/mcL BMP 11/26/18 06:08 Sodium 139 Potassium 3.7 Chloride 105 Carbon Dioxide 23 BUN 24 H Creatinine 0.91 Glucose 88 Calcium 8.9 Cardiac Enzymes 11/26/18 Range/Units 09:43 Troponin I 0.19 H* (< 0.04) ng/mL Liver Function 11/26/18 Range/Units 06:08 Albumin 3.7 (3.5-5.7) g/dL - ABG Interpretation ABG results: PT/INR, D-dimer PT 11.8 Seconds (9.4-12.1) 11/24/18 00:44 Consult Discharge Plan - Plan Referrals: Wyatt Nails MD [Partnered Physician] - (1) Rhabdomyolysis Qualifiers: Rhabdomyolysis type: traumatic Encounter type: initial encounter Qualified Code(s): T79.6XXA - Traumatic ischemia of muscle, initial encounter (2) Syncope Qualifiers: Syncope type: unspecified Qualified Code(s): R55 - Syncope and collapse (4) Urinary tract infection Qualifiers: Urinary tract infection type: site unspecified Hematuria presence: without hematuria Qualified Code(s): N39.0 - Urinary tract infection, site not specified
--- NOTE | 2018-11-26 14:50 | Vascular/Endovasc Consult Note ---
Date of Encounter: 11/26/18 Time of Encounter: 13:45 Assessment and Plan (1) Syncope Current Visit: Yes Status: Acute Patient has unexplained syncope. It does not appear to be related to the carotid artery disease. I did speak with the family about clarification of the patient's CODE STATUS. They expressed to me that they would not be interested in carotid artery surgery. Qualifiers: Syncope type: unspecified Qualified Code(s): R55 - Syncope and collapse (2) Carotid stenosis, bilateral Current Visit: Yes Status: Acute Patient has bilateral carotid artery stenosis. I do not believe this is the cause of the patient's syncope. Due to her overall medical condition I would not recommend further testing with angiography. The family does not wish to consider carotid endarterectomy. Family informed me that they are considering relocating the patient to live with her daughter who lives in [place]. - History of Present Illness Consult date: 11/26/18 Consult reason: Loss of consciousness Chief complaint: Loss of consciousness History of present illness: Ms. Cao is a 88 year old female Who was found to be collapsed on her floor at home. She was then transported to the hospital and is being evaluated. As part of that evaluation for this loss of consciousness a carotid duplex scan was performed. This was performed on November 24. The patient demonstrates elevation of the systolic velocity in both internal carotid arteries. The interpretation was a stenosis of 60-79%. I personally reviewed these images. The degree of stenosis is at the lower end of that spectrum. The patient has no history of previous stroke or TIAs. The patient has no previous history of carotid duplex scanning. The patient is elderly and lives by herself. The family members frequently contact her through phone calls and emails. Past Med Surg Social Fam HX - Past Medical History Medical history: osteoporosis Psychiatric history: no psych history - Past Surgical History Surgical History: no surgical history - Social History Smoking Status: Never smoker Smokeless Tobacco Status: No Alcohol use: none Drug use: none - Family History Mother Living Status: Hx Family Cardiac Disorders: No Hx Family Neurologic Disorders: No Father History Unknown: Yes Living Status: Medications and Allergies No Known Home Drugs 11/24/18 [History] Allergy/AdvReac Type Severity Reaction Status Date / Time No Known Allergies Allergy Verified 11/24/18 16:46 All Systems Review: The remainder of the systems were reviewed and are negative Exam General: Present: Conversant, No Apparent Distress HEENT: Present: Atraumatic, Normocephaly, Trachea midline Neck: Absent: JVD, Left Carotid bruit, Right Carotid bruit, Midline deformity, Tracheal deviation Cardiac: Present: Reg Rate and Rhythm, No Murmur Lungs: Present: Normal Breath Sounds, No Wheeze, Rales, Rhonchi Neuro: Present: Alert and responsive, No focal deficits noted, Other (Patient initiates minimal conversation and the patient's children are in the room to provide the history. There is a question of ongoing dementia.) Consult Discharge Plan - Plan Referrals: Wyatt Nails MD [Partnered Physician] -
[2018-11-27] MEDS: 0.9 % Sodium Chloride 1,000 ML IVC SCH ×2 (04:51→15:51)
[2018-11-27] MEDS: *HR* Heparin 5,000 UNIT/ML VIAL SQ SCH ×2 (05:40→18:50)
[2018-11-27 08:09] LABS: Basophils % 0.4 %; Eosinophils # 0.2 K/mcL (0.0-0.6); Eosinophils % 3.4 %; Hematocrit 36.7 % (35.3-44.9); Hemoglobin 11.9 g/dL (11.5-15.4); Immature Granulocytes % 0.4 % (0-4); Lymphocytes # 3.2 K/mcL (0.6-4.6); Lymphocytes % 45.3 %; Mean Corpuscular HGB Conc 32.4 g/dL (31.6-35.5); Mean Corpuscular Hemoglobin 29.8 pg (28.0-33.3); Mean Corpuscular Volume 91.8 fL (83.0-100.0); Mean Platelet Volume 11.4 fL (9.4-12.4); Monocytes # 0.5 K/mcL (0.0-1.3); Monocytes % 7.7 %; Platelet Count 176 K/mcL (140-400); Red Cell Distribution Width 13.4 % (11.5-14.5); Segmented Neutrophils % 42.8 %
[2018-11-27] MEDS: Sennosides 8.6 MG TABLET PO SCH ×2 (08:20→20:56)
[2018-11-27 08:24] LABS: Albumin 3.7 g/dL (3.5-5.7); BUN/Creatinine Ratio 24 (6-26); Blood Urea Nitrogen 22 mg/dL (8-23); Calcium 8.9 mg/dL (8.6-10.3); Carbon Dioxide 22 mEq/L (23-29); Chloride 102 mEq/L (98-107); Creatine Kinase 546 Units/L (30-223); Glucose 91 mg/dL (70-105); Osmolality,Calculated 285 (280-300); Phosphorous 2.2 mg/dL (2.7-4.5); Potassium 3.4 mEq/L (3.5-5.1); Sodium 136 mEq/L (136-145); eGFR For African Americans > 60 (> 60); eGFR For Non-African Americans 58 (> 60)
--- NOTE | 2018-11-27 14:18 | Internal Med Progress Note ---
Hospitalist Progress Note - Encounter Date of Encounter: 11/27/18 Time of Encounter: 14:16 - Subjective Interval History: Pt denies chest pain and SOB. Denies fever, chills, N/V, diarrhea. Denies abdominal pain. - Exam Vitals: Temp Pulse Resp BP Pulse Ox 97.4 F L 78 14 159/67 94 11/27/18 12:22 11/27/18 12:22 11/27/18 12:22 11/27/18 12:22 11/27/18 12:22 Exam: General appearance: Present: cooperative, A&O X 3, pleasant, no acute distress Exam: very hard of hearing; dehydrated; mildly confused Head exam: Present: atraumatic, normal inspection Eye exam: Present: EOMI, PERRL. Absent: scleral icterus Pupils: Present: normal accommodation ENT exam: Present: mucous membranes dry, normal oropharynx Additional comments: chipped front tooth Neck exam general surgery: Present: full ROM, supple, trachea midline. Absent: tenderness, nuchal rigidity, thyromegaly Respiratory exam: Present: CTAB. Absent: chest wall tenderness, rales, respiratory distress, rhonchi, wheezes Cardiovascular exam: Present: distant heart sounds, RRR, +S1, +S2. Absent: diastolic murmur, JVD, systolic murmur GI/Abdominal exam: Present: normal bowel sounds, soft. Absent: guarding, hepatomegaly, mass, rebound, splenomegaly, tenderness Extremities exam: Present: full ROM, normal capillary refill, warm, radial pulses palpable and symmetrical. Absent: calf tenderness, joint swelling, pedal edema, tenderness. Back exam: Absent: CVA tenderness (L), CVA tenderness (R) Neurological exam: Present: alert, CN II-XII intact, oriented X3, no focal deficits, strengths equal and symetr throughout. Absent: facial droop, speech deficit Psychiatric exam: Present: normal affect, normal mood Skin exam: Present: dry, intact, warm - Assessment and Plan (1) Rhabdomyolysis Current Visit: Yes Status: Acute Assessment and Plan: Pt responded to IVF hydration as above. Creatinine Kinase 1508 --> 1175--> 487 -->835 --> 546. Was going to discharge pt but CK bumped today. Will give IVf and reassess in am. Troponin trended down. Will continue to monitor (2) Syncope Current Visit: Yes Status: Acute Assessment and Plan: Troponins trended up initially so cardiology was consulted. Follow up troponin trended down. Cardiology states no further recommendations at this time. Echo showed preserved EF and EKG's did not show any acute changes. Monitoring serial glucose checks. (3) ANAMARIA (acute kidney injury) Current Visit: Yes Status: Acute Assessment and Plan: 1. Pt hydrated with IV and oral fluids. 2. Renal function improved. Cr 1.26--> 1.03--> 0.95-->0.91 (4) Urinary tract infection Current Visit: Yes Status: Acute Assessment and Plan: 1. Urine culture collected in ER. 2. On IV Rocephin but urine culture results showing normal results. Will DC Rocephin 11/26/18. (5) Carotid stenosis, bilateral Current Visit: Yes Status: Acute Assessment and Plan: Severe bilateral carotid stenosis. Carotid Dopplers showing 60-79% bilateral ICA stenosis. Consulted cardio-vascular surgeon to see, and appreciate consult. Pt refuses to have surgery. 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 Cao is an 88 year old female who presents the ER today after family found her on the ground, passed out, and down for an unknown period of time. She was brought to the ER where she had workup including imaging studies, lab data, and urinalysis. Imaging studies did not show any significant pathology and/or any fractures. Labs suggest mild acute kidney injury, rhabdomyolysis, troponin elevation, and UTI. EKG was unremarkable. Given her syncopal spell, rhabdomy olysis, and UTI, she was admitted to hospitalist service. - Time Spent with Patient Total time spent is greater than 50% in coordination of care (as documented) at patient's floor/unit and/or counseling patient: less than 15 minutes Plan of Care Discussed with: patient Internal Medicine: Result - Labs CBC & Chem 7: 11/27/18 07:43 11/27/18 07:43 Labs: Short CBC 11/27/18 Range/Units 07:43 WBC 7.0 (4.3-11.1) K/mcL Hgb 11.9 (11.5-15.4) g/dL Hct 36.7 (35.3-44.9) % Plt Count 176 (140-400) K/mcL Neutrophils # 3.0 (1.6-8.9) K/mcL BMP 11/27/18 07:43 Sodium 136 Potassium 3.4 L Chloride 102 Carbon Dioxide 22 L BUN 22 Creatinine 0.91 Glucose 91 Calcium 8.9 Liver Function 11/27/18 Range/Units 07:43 Albumin 3.7 (3.5-5.7) g/dL - ABG Interpretation ABG results: PT/INR, D-dimer PT 11.8 Seconds (9.4-12.1) 11/24/18 00:44 Consult Discharge Plan - Plan Referrals: Wyatt Nails MD [Partnered Physician] - (1) Rhabdomyolysis Qualifiers: Rhabdomyolysis type: traumatic Encounter type: initial encounter Qualified Code(s): T79.6XXA - Traumatic ischemia of muscle, initial encounter (2) Syncope Qualifiers: Syncope type: unspecified Qualified Code(s): R55 - Syncope and collapse (4) Urinary tract infection Qualifiers: Urinary tract infection type: site unspecified Hematuria presence: without hematuria Qualified Code(s): N39.0 - Urinary tract infection, site not specified
[2018-11-27] MEDS: Acetaminophen 325 MG TABLET PO PRN (20:55)
[2018-11-28] MEDS: 0.9 % Sodium Chloride 1,000 ML IVC SCH (02:30)
[2018-11-28] MEDS: Acetaminophen 325 MG TABLET PO PRN (03:25)
[2018-11-28] MEDS: *HR* Heparin 5,000 UNIT/ML VIAL SQ SCH (05:29)
[2018-11-28] MEDS: Sennosides 8.6 MG TABLET PO SCH (08:27)
--- NOTE | 2018-11-28 09:23 | Discharge Summary ---
- NOTES TO OUTPATIENT PROVIDER Notes to Outpatient Provider: Pt refuses to establish care with PCP. Orders not resulted at time of discharge: Pending orders 11/24/18 06:00 ECG 12 lead ECG [ECG] AM 0600 Date of Encounter: 11/28/18 Time of Encounter: 09:20 - Discharge Diagnosis (1) Rhabdomyolysis Priority: Primary Status: Resolved Assessment and Plan: Creatinine Kinase 1508 --> 1175--> 487 -->835 --> 546-->213. Was going to discharge pt but CK bumped 11/25/18. Given IVF and pt responded to IVF hydration as above. . Troponin trended down. Qualifiers: Rhabdomyolysis type: traumatic Encounter type: initial encounter Qualified Code(s): T79.6XXA - Traumatic ischemia of muscle, initial encounter (2) Syncope Priority: Primary Status: Acute Assessment and Plan: Troponins trended up initially so cardiology was consulted. Follow up troponin trended down. Cardiology states no further recommendations at this time. Echo showed preserved EF and EKG's did not show any acute changes. Carotid dopplers showed severe B/L carotid disease. Seen by vascular surgeon and pt declines to have surgery. No further recommendations from vascular at this time. Qualifiers: Syncope type: unspecified Qualified Code(s): R55 - Syncope and collapse (3) ANAMARIA (acute kidney injury) Priority: Secondary Status: Resolved Assessment and Plan: 1. Pt hydrated with IV and oral fluids. 2. Renal function improved. Cr 1.26--> 1.03--> 0.95-->0.91 (4) Urinary tract infection Priority: Secondary Status: Acute Assessment and Plan: 1. Urine culture collected in ER. 2. On IV Rocephin but urine culture results showing normal luis. DC'ed Rocephin 11/26/18. Qualifiers: Urinary tract infection type: site unspecified Hematuria presence: without hematuria Qualified Code(s): N39.0 - Urinary tract infection, site not specified (5) Carotid stenosis, bilateral Priority: Secondary Status: Acute Assessment and Plan: Severe bilateral carotid stenosis. Carotid Dopplers showing 60-79% bilateral ICA stenosis. Consulted cardio-vascular surgeon to see, and appreciate consult. Pt refuses to have surgery. (6) HTN (hypertension) Priority: Secondary Status: Chronic Assessment and Plan: uncontrolled. 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 Cao is an 88 year old female who presents the ER today after family found her on the ground, passed out, and down for an unknown period of time. She was brought to the ER where she had workup including imaging studies, lab data, and urinalysis. Imaging studies did not show any significant pathology and/or any fractures. Labs suggest mild acute kidney injury, rhabdomyolysis, troponin elevation, and UTI. EKG was unremarkable. Given her syncopal spell, rhabdomyolysis, and UTI, she was admitted to hospitalist service. Discharge discussed with: patient - Time Spent with Patient Total time spent providing and/or coordinating discharge services: Time spent: Greater than 30 minutes - Discharge Medications Prescriptions: No Action No Known Home Drugs 1 each .ROUTE AD each Home Medications: Ketorolac [Toradol] 10 mg PO Q6HR PRN 30 Days #120 tablet 11/28/18 [Rx] Metoprolol [Lopressor] 25 mg PO BID tablet 11/28/18 [Rx] Tramadol HCl [Ultram] 50 mg PO BID PRN 30 Days #60 tab 11/28/18 [Rx] Allergies/Adverse Reactions: Allergy/AdvReac Type Severity Reaction Status Date / Time No Known Allergies Allergy Verified 11/24/18 16:46 Date of admission: 11/24/18 12:48 Primary care physician: PCP NONE Consults: 11/23/18 22:24 Consult to Reliability Technologist [CONS] Routine Reason for SW Consult: possible need for home health 11/23/18 23:43 Consult to Occupational Therapy [CONS] Routine Comment: Evaluate, develop and implement POC Reason for Consult: fall at home, lives alone Does patient have active BEDREST order?: No Is patient medically & hemodynamically stable?: Yes Consult to Physical Therapy [CONS] Routine Comment: Evaluate, develop and implement POC Reason for Consult: fall at home, lives alone Does patient have active BEDREST order?: No Is patient medically & hemodynamically stable?: Yes 11/24/18 15:39 Consult to Cardiology [CONS] Routine Comment: Consulting Provider: Cardiology Sowmya Reason for Consult: elevated troponin ? NSTEMI Call Completed: Yes 11/25/18 17:51 Consult to Vascular Surgery [CONS] Routine Consulting Provider: Vascular Surgery Sowmya Reason for Consult: Sever carotid stenosis Call Completed: Yes Discharging clinician: Suzanne Marte Anticipated date of discharge: 11/28/18 - Constitutional Vitals: Temp Pulse Resp BP Pulse Ox 98.0 F 71 14 176/54 97 11/28/18 07:48 11/28/18 07:48 11/28/18 07:48 11/28/18 07:48 11/28/18 07:48 General appearance: Present: cooperative, A&O X 2, pleasant, no acute distress Exam: General appearance: Present: cooperative, A&O X 3, pleasant, no acute distress Exam: very hard of hearing; dehydrated; mildly confused Head exam: Present: atraumatic, normal inspection Eye exam: Present: EOMI, PERRL. Absent: scleral icterus Pupils: Present: normal accommodation ENT exam: Present: mucous membranes dry, normal oropharynx Additional comments: chipped front tooth Neck exam general surgery: Present: full ROM, supple, trachea midline. Absent: tenderness, nuchal rigidity, thyromegaly Respiratory exam: Present: CTAB. Absent: chest wall tenderness, rales, respiratory distress, rhonchi, wheezes Cardiovascular exam: Present: distant heart sounds, RRR, +S1, +S2. Absent: diastolic murmur, JVD, systolic murmur GI/Abdominal exam: Present: normal bowel sounds, soft. Absent: guarding, hepatomegaly, mass, rebound, splenomegaly, tenderness Extremities exam: Present: full ROM, normal capillary refill, warm, radial pulses palpable and symmetrical. Absent: calf tenderness, joint swelling, pedal edema, tenderness. Back exam: Absent: CVA tenderness (L), CVA tenderness (R) Neurological exam: Present: alert, CN II-XII intact, oriented X3, no focal deficits, strengths equal and symetr throughout. Absent: facial droop, speech deficit Psychiatric exam: Present: normal affect, normal mood Skin exam: Present: dry, intact, warm - Patient Status Disposition: Home, Self-Care Condition: Good Overall status at discharge: patient is back to baseline - Discharge Instructions Follow Up With: Wyatt Nails MD [Partnered Physician] - - Diet and Activity Activity: increase activity as tolerated Diet: advance to your usual diet
[2018-11-28 10:35] VITALS: BP 122/57
== END 2018-11-28 14:09 | disposition home or self-care (01) | DRG 68 ==
LOC: EMEROOARM 17:24 → 3ANU 20:37 → INTOOBSV 20:37 → 3ANU 21:50
PROVIDERS: ADMIT Family Medicine; ATTEND Family Medicine

== ENCOUNTER 2018-12-14 20:38 | Observation (INO) ==
[2018-12-14 21:47] LABS: Basophils % 0.5 %; Eosinophils # 0.2 K/mcL (0.0-0.6); Eosinophils % 3.5 %; Hematocrit 38.5 % (35.3-44.9); Hemoglobin 12.5 g/dL (11.5-15.4); Immature Granulocytes % 0.5 % (0-4); Lymphocytes # 1.5 K/mcL (0.6-4.6); Lymphocytes % 25.3 %; Mean Corpuscular HGB Conc 32.5 g/dL (31.6-35.5); Mean Corpuscular Hemoglobin 30.6 pg (28.0-33.3); Mean Corpuscular Volume 94.4 fL (83.0-100.0); Mean Platelet Volume 11.1 fL (9.4-12.4); Monocytes # 0.7 K/mcL (0.0-1.3); Monocytes % 11.3 %; Neutrophils # 3.5 K/mcL (1.6-8.9); Platelet Count 202 K/mcL (140-400); Red Blood Count 4.08 M/mcL (3.82-4.97); Red Cell Distribution Width 13.8 % (11.5-14.5); Segmented Neutrophils % 58.9 %; White Blood Count 5.9 K/mcL (4.3-11.1)
[2018-12-14 22:07] LABS: Albumin 4.2 g/dL (3.5-5.7); Albumin/Globulin Ratio 1.8 (1.1-2.2); Bilirubin,Direct 0.1 mg/dL (0.0-0.2); Bilirubin,Indirect 0.5 mg/dL (0.0-1.2); Bilirubin,Total 0.6 mg/dL (0.3-1.0); Calcium 9.7 mg/dL (8.6-10.3); Globulin 2.4 g/dL (2.4-3.5); Potassium 4.7 mEq/L (3.5-5.1); Total Protein 6.6 g/dL (6.4-8.9)
[2018-12-14 22:09] LABS: Magnesium 2.1 mg/dL (1.6-2.6)
[2018-12-14 22:10] LABS: Troponin I < 0.03 ng/mL (< 0.04)
--- NOTE | 2018-12-14 22:11 | Emergency Department Note ---
Disposition Clinical Impression: Weakness, ANAMARIA (acute kidney injury) Disposition: Admitted As Inpatient Condition: Fair Referrals: NONE,PCP [Primary Care Provider] - Forms: ED Satisfaction Letter Time of Disposition: 22:40 General Adult HPI - General Chief complaint: ED Weakness Stated complaint: Weakness/Pain Time Seen by Provider: 12/14/18 20:59 Source: family Mode of arrival: wheelchair Limitations: no limitations Nursing Notes Reviewed: Yes Vital Signs Reviewed: Yes - History of Present Illness HPI Narrative: Patient is an 88-year-old female with past medical history of hypertension and osteoporosis as well as recent admission for UTI causing AK I as well as rhabdomyolysis presents the ED for evaluation of weakness and concern for safety at home. Patient's family states they took the patient home after discharge at the end of October 2018 and attempt to keep her home although placement was recommended for safety the family states that they no longer feel that she is safe at home and states that she requires 24-hour surveillance otherwise she will have a fall or injury. Pain Scale: 0 - Related Data Previous Rx's Medication Instructions Recorded Ketorolac [Toradol] 10 mg PO Q6HR PRN 30 Days #120 11/28/18 tablet Metoprolol [Lopressor] 25 mg PO BID 30 Days #60 tablet 11/28/18 Tramadol HCl [Ultram] 50 mg PO BID PRN 30 Days #60 tab 11/28/18 Allergies Allergy/AdvReac Type Severity Reaction Status Date / Time No Known Allergies Allergy Verified 12/14/18 20:49 All systems ED: reviewed and negative except as stated. Review of Systems: As Per HPI Cardiovascular: Denies: chest pain, paroxysmal nocturnal dyspnea Respiratory: Denies: cough Gastrointestinal: Denies: abdominal pain, nausea, vomiting, diarrhea Genitourinary: Denies: urgency, dysuria, frequency, hematuria Musculoskeletal: Denies: back pain, neck pain Integumentary: Denies: rash Past Medical History - Past Medical History Attestation: Yes The following information was validated with the patient. Medical history: Reports: hypertension, osteoporosis Surgical history: Reports: no surgical history Psychiatric history: Reports: no psych history - Social History Smoking Status: Never smoker Smokeless Tobacco Status: No Alcohol use: Reports: none Drug use: Reports: none Physical Exam - General Limitations: no limitations General appearance: alert, in no apparent distress - Head Head exam: atraumatic, normocephalic, normal inspection - Eye Eye exam: Present: normal appearance, PERRL, EOMI - ENT ENT exam: normal exam, normal oropharynx, mucous membranes moist - Neck Neck exam: Present: normal inspection, full ROM, trachea midline - Chest Chest inspection: Present: normal inspection, symmetric chest wall rise - Respiratory Respiratory exam: Present: normal lung sounds bilaterally - Cardiovascular Cardiovascular exam: Present: regular rate, normal rhythm, normal heart sounds, +S1, +S2 - Abdominal Exam Abdominal exam: Present: soft, Non-Tender, normal bowel sounds. Absent: tenderness, distention, guarding, rebound, rigidity - Extremities Exam Extremities exam: Present: normal inspection, full ROM. Absent: tenderness, pedal edema - Back Exam Back exam: Present: normal inspection, full ROM. Absent: tenderness - Neurological Exam Neurological exam: Present: alert, oriented X3 - Psychiatric Psychiatric exam: Present: normal affect, normal mood - Skin Skin exam: Present: warm, dry, intact, normal color Course Course Narrative: Patient brought in for generalized weakness which is been a parents and she was discharged in the end of October 2018. Family is concern for patient safety stating that she requires too much monitoring at home and concern for potential injury or fall. Discussed with the family that patient we worked up for her weakness and I will consult with social work for potential placement given that is the family's primary concern. - Reevaluation(s) Reevaluation #1: Patient's workup was significant for acute on chronic kidney injury. I discussed the patient's case with the social work therapist systems applications programming lead, Veronica, she said that given the patient's insurance a recent hospitalization she most likely qualify for placement to a facility discussed that she will be in tomorrow to the patient and work further on this issue. Patient be admitted to hospital for further management of her a KI. Vital Signs Temperature 97.2 F L 12/14/18 20:44 Pulse Rate 90 12/14/18 20:44 Respiratory Rate 20 12/14/18 20:44 Blood Pressure 162/83 12/14/18 20:44 O2 Sat by Pulse Oximetry 97 12/14/18 20:44 Temperature 97.2 F L 12/14/18 20:44 Pulse Rate 90 12/14/18 20:44 Respiratory Rate 20 12/14/18 20:44 Blood Pressure 162/83 12/14/18 20:44 O2 Sat by Pulse Oximetry 97 12/14/18 20:44 Oxygen Delivery Oxygen Delivery Room Air Medical Decision Making - Medical Records Medical records reviewed: Yes I reviewed the patient's medical records. - Lab Data Lab results reviewed: Yes I reviewed the patient's lab results. Result diagrams: 12/14/18 21:34 12/14/18 21:34 Lab Results 12/14/18 12/14/18 12/14/18 Range/Units 21:34 21:34 21:34 WBC 5.9 (4.3-11.1) K/mcL RBC 4.08 (3.82-4.97) M/mcL Hgb 12.5 (11.5-15.4) g/dL Hct 38.5 (35.3-44.9) % MCV 94.4 (83.0-100.0) fL MCH 30.6 (28.0-33.3) pg MCHC 32.5 (31.6-35.5) g/dL RDW 13.8 (11.5-14.5) % Plt Count 202 (140-400) K/mcL MPV 11.1 (9.4-12.4) fL Immature Gran % 0.5 (0-4) % Seg Neutrophils % 58.9 % Lymphocytes % 25.3 % Monocytes % 11.3 % Eosinophils % 3.5 % Basophils % 0.5 % Neutrophils # 3.5 (1.6-8.9) K/mcL Lymphocytes # 1.5 (0.6-4.6) K/mcL Monocytes # 0.7 (0.0-1.3) K/mcL Eosinophils # 0.2 (0.0-0.6) K/mcL Basophils # 0.0 (0.0-0.2) K/mcL Sodium 130 L (136-145) mEq/L Potassium 4.7 (3.5-5.1) mEq/L Chloride 100 (98-107) mEq/L Carbon Dioxide 19 L (23-29) mEq/L BUN 30 H (8-23) mg/dL Creatinine 1.85 H (0.60-1.20) mg/dL Est GFR ( Amer) 31 L (> 60) Est GFR (Non-Af Amer) 26 L (> 60) BUN/Creatinine Ratio 16 (6-26) Glucose 116 H (70-105) mg/dL Calculated Osmolality 277 L (280-300) Lactic Acid 1.8 (0.5-2.2) mmol/L Calcium 9.7 (8.6-10.3) mg/dL Magnesium (1.6-2.6) mg/dL Total Bilirubin 0.6 (0.3-1.0) mg/dL Direct Bilirubin 0.1 (0.0-0.2) mg/dL Indirect Bilirubin 0.5 (0.0-1.2) mg/dL AST 17 (13-39) Units/L ALT 13 (7-52) Units/L Alkaline Phosphatase 68 (34-104) Units/L Creatine Kinase (30-223) Units/L Troponin I (< 0.04) ng/mL Serum Total Protein 6.6 (6.4-8.9) g/dL Albumin 4.2 (3.5-5.7) g/dL Globulin 2.4 (2.4-3.5) g/dL Albumin/Globulin Ratio 1.8 (1.1-2.2) Lipase 22 (11-82) Units/L Urine Color (Yellow) Urine Clarity (Clear) Urine pH (5.0-8.0) pH Units Ur Specific [place] (1.010-1.025) Urine Protein (Neg-Trace) mg/dL Urine Glucose (UA) (Normal) mg/dL Urine Ketones (Negative) mg/dL Urine Blood (Negative) Urine Nitrite (Negative) Urine Bilirubin (Negative) Urine Urobilinogen (Normal) mg/dL Ur Leukocyte Esterase (Negative) 12/14/18 12/14/18 12/14/18 Range/Units 21:34 21:34 22:11 WBC (4.3-11.1) K/mcL RBC (3.82-4.97) M/mcL Hgb (11.5-15.4) g/dL Hct (35.3-44.9) % MCV (83.0-100.0) fL MCH (28.0-33.3) pg MCHC (31.6-35.5) g/dL RDW (11.5-14.5) % Plt Count (140-400) K/mcL MPV (9.4-12.4) fL Immature Gran % (0-4) % Seg Neutrophils % % Lymphocytes % % Monocytes % % Eosinophils % % Basophils % % Neutrophils # (1.6-8.9) K/mcL Lymphocytes # (0.6-4.6) K/mcL Monocytes # (0.0-1.3) K/mcL Eosinophils # (0.0-0.6) K/mcL Basophils # (0.0-0.2) K/mcL Sodium (136-145) mEq/L Potassium (3.5-5.1) mEq/L Chloride (98-107) mEq/L Carbon Dioxide (23-29) mEq/L BUN (8-23) mg/dL Creatinine (0.60-1.20) mg/dL Est GFR ( Amer) (> 60) Est GFR (Non-Af Amer) (> 60) BUN/Creatinine Ratio (6-26) Glucose (70-105) mg/dL Calculated Osmolality (280-300) Lactic Acid (0.5-2.2) mmol/L Calcium (8.6-10.3) mg/dL Magnesium 2.1 (1.6-2.6) mg/dL Total Bilirubin (0.3-1.0) mg/dL Direct Bilirubin (0.0-0.2) mg/dL Indirect Bilirubin (0.0-1.2) mg/dL AST (13-39) Units/L ALT (7-52) Units/L Alkaline Phosphatase (34-104) Units/L Creatine Kinase 60 (30-223) Units/L Troponin I < 0.03 (< 0.04) ng/mL Serum Total Protein (6.4-8.9) g/dL Albumin (3.5-5.7) g/dL Globulin (2.4-3.5) g/dL Albumin/Globulin Ratio (1.1-2.2) Lipase (11-82) Units/L Urine Color Yellow (Yellow) Urine Clarity Cloudy A (Clear) Urine pH 5.5 (5.0-8.0) pH Units Ur Specific [place] 1.027 H (1.010-1.025) Urine Protein Negative (Neg-Trace) mg/dL Urine Glucose (UA) Normal (Normal) mg/dL Urine Ketones Negative (Negative) mg/dL Urine Blood Negative (Negative) Urine Nitrite Negative (Negative) Urine Bilirubin Small H (Negative) Urine Urobilinogen Normal (Normal) mg/dL Ur Leukocyte Esterase Small H (Negative) - Radiology Data Radiology results reviewed: Yes I reviewed the patient's radiology results. Chest X-Ray 12/14/18 21:08 IMPRESSION: No acute disease. D/ / Alvaro Victoria MD / Alvaro Victoria MD Interpreting Provider: Alvaro Victoria MD - EKG Data EKG #1 EKG attestation: Yes I reviewed and interpreted this EKG. EKG results narrative: EKG done at 21:29 shows sinus rhythm at a rate of 84 bpm. Normal axis. Intervals within normal limits. No ischemia. Attestation Statement - Attestation Attestation: I have seen this patient with the resident physician, I have personally evaluated this patient. I had reviewed the chart and document dictation by the resident physician and aM in agreement with the information documented by the resident physician. Please see documentation by the resident physician for complete chart including past medical history, family medical history, review of systems, current history and physical and laboratory and imaging studies. I was present for all procedures, provided direct supervision for all procedures, was present for the entirety of all procedures and provided direct guidance during the procedures. Please see documentation by the resident physician for any procedures performed. I have reviewed all interpretations of EKGs, and reviewed all EKGs performed on patient's as well. I have also reviewed reports of imaging as provided by radiology.
[2018-12-14] MEDS ORDERED: 0.9 % Sodium Chloride 1,000 ML IVC ONE ×2 (22:15→22:18)
[2018-12-14 22:23] LABS: Bilirubin,Urine Small (Negative); Blood,Urine Negative (Negative); Clarity,Urine Cloudy (Clear); Color,Urine Yellow (Yellow); Glucose,Urine (UA) Normal (Normal); Ketones,Urine Negative (Negative); Leukocyte Esterase,Urine Small (Negative); Nitrite,Urine Negative (Negative); PH,Urine 5.5 pH Units (5.0-8.0); Protein,Urine Negative (Neg-Trace); Specific Gravity,Urine 1.027 (1.010-1.025); Urobilinogen,Urine Normal (Normal)
[2018-12-14 22:25] LABS: Bacteria,Urine None Seen per hpf (None-Few); Squamous Epithelial Cell,Urine Many per lpf (None-Few); WBC,Urine 15-30 per hpf (0-3)
[2018-12-14 22:33] LABS: Hyaline Casts,Urine Moderate per lpf (None-Few); Uric Acid Crystals,Urine Present
--- NOTE | 2018-12-14 22:46 | Emergency Department Note ---
Disposition Clinical Impression: Weakness, ANAMARIA (acute kidney injury) Disposition: Admitted As Inpatient Condition: Fair Forms: ED Satisfaction Letter Time of Disposition: 22:45 General Adult HPI - General Chief complaint: ED Weakness Stated complaint: Weakness/Pain Time Seen by Provider: 12/14/18 20:59 Source: family Mode of arrival: wheelchair Limitations: no limitations - History of Present Illness Pain Scale: 0 - Related Data Previous Rx's Medication Instructions Recorded Ketorolac [Toradol] 10 mg PO Q6HR PRN 30 Days #120 11/28/18 tablet Metoprolol [Lopressor] 25 mg PO BID 30 Days #60 tablet 11/28/18 Tramadol HCl [Ultram] 50 mg PO BID PRN 30 Days #60 tab 11/28/18 Allergies Allergy/AdvReac Type Severity Reaction Status Date / Time No Known Allergies Allergy Verified 12/14/18 20:49 Cardiovascular: Denies: chest pain, paroxysmal nocturnal dyspnea Respiratory: Denies: cough Gastrointestinal: Denies: abdominal pain, nausea, vomiting, diarrhea Genitourinary: Denies: urgency, dysuria, frequency, hematuria Musculoskeletal: Denies: back pain, neck pain Integumentary: Denies: rash Past Medical History - Past Medical History Medical history: Reports: hypertension, osteoporosis Surgical history: Reports: no surgical history Psychiatric history: Reports: no psych history - Social History Smoking Status: Never smoker Smokeless Tobacco Status: No Alcohol use: Reports: none Drug use: Reports: none Physical Exam - General Limitations: no limitations General appearance: alert, in no apparent distress Course Vital Signs Temperature 97.2 F L 12/14/18 20:44 Pulse Rate 90 12/14/18 20:44 Respiratory Rate 20 12/14/18 20:44 Blood Pressure 162/83 12/14/18 20:44 O2 Sat by Pulse Oximetry 97 12/14/18 20:44 Temperature 97.2 F L 12/14/18 20:44 Pulse Rate 90 12/14/18 20:44 Respiratory Rate 20 12/14/18 20:44 Blood Pressure 162/83 12/14/18 20:44 O2 Sat by Pulse Oximetry 97 12/14/18 20:44 Oxygen Delivery Oxygen Delivery Room Air Medical Decision Making - Lab Data Result diagrams: 12/14/18 21:34 12/14/18 21:34 Lab Results 12/14/18 12/14/18 12/14/18 Range/Units 21:34 21:34 21:34 WBC 5.9 (4.3-11.1) K/mcL RBC 4.08 (3.82-4.97) M/mcL Hgb 12.5 (11.5-15.4) g/dL Hct 38.5 (35.3-44.9) % MCV 94.4 (83.0-100.0) fL MCH 30.6 (28.0-33.3) pg MCHC 32.5 (31.6-35.5) g/dL RDW 13.8 (11.5-14.5) % Plt Count 202 (140-400) K/mcL MPV 11.1 (9.4-12.4) fL Immature Gran % 0.5 (0-4) % Seg Neutrophils % 58.9 % Lymphocytes % 25.3 % Monocytes % 11.3 % Eosinophils % 3.5 % Basophils % 0.5 % Neutrophils # 3.5 (1.6-8.9) K/mcL Lymphocytes # 1.5 (0.6-4.6) K/mcL Monocytes # 0.7 (0.0-1.3) K/mcL Eosinophils # 0.2 (0.0-0.6) K/mcL Basophils # 0.0 (0.0-0.2) K/mcL Sodium 130 L (136-145) mEq/L Potassium 4.7 (3.5-5.1) mEq/L Chloride 100 (98-107) mEq/L Carbon Dioxide 19 L (23-29) mEq/L BUN 30 H (8-23) mg/dL Creatinine 1.85 H (0.60-1.20) mg/dL Est GFR ( Amer) 31 L (> 60) Est GFR (Non-Af Amer) 26 L (> 60) BUN/Creatinine Ratio 16 (6-26) Glucose 116 H (70-105) mg/dL Calculated Osmolality 277 L (280-300) Lactic Acid 1.8 (0.5-2.2) mmol/L Calcium 9.7 (8.6-10.3) mg/dL Magnesium (1.6-2.6) mg/dL Total Bilirubin 0.6 (0.3-1.0) mg/dL Direct Bilirubin 0.1 (0.0-0.2) mg/dL Indirect Bilirubin 0.5 (0.0-1.2) mg/dL AST 17 (13-39) Units/L ALT 13 (7-52) Units/L Alkaline Phosphatase 68 (34-104) Units/L Creatine Kinase (30-223) Units/L Troponin I (< 0.04) ng/mL Serum Total Protein 6.6 (6.4-8.9) g/dL Albumin 4.2 (3.5-5.7) g/dL Globulin 2.4 (2.4-3.5) g/dL Albumin/Globulin Ratio 1.8 (1.1-2.2) Lipase 22 (11-82) Units/L Urine Color (Yellow) Urine Clarity (Clear) Urine pH (5.0-8.0) pH Units Ur Specific [place] (1.010-1.025) Urine Protein (Neg-Trace) mg/dL Urine Glucose (UA) (Normal) mg/dL Urine Ketones (Negative) mg/dL Urine Blood (Negative) Urine Nitrite (Negative) Urine Bilirubin (Negative) Urine Urobilinogen (Normal) mg/dL Ur Leukocyte Esterase (Negative) Urine Microscopic RBC (0-3) per hpf Urine Microscopic WBC (0-3) per hpf Ur Squamous Epith Cells (None-Few) per lpf Uric Acid Crystals Urine Bacteria (None-Few) per hpf Hyaline Casts (None-Few) per lpf Ur Culture Indicated? (NO) 12/14/18 12/14/18 12/14/18 Range/Units 21:34 21:34 22:11 WBC (4.3-11.1) K/mcL RBC (3.82-4.97) M/mcL Hgb (11.5-15.4) g/dL Hct (35.3-44.9) % MCV (83.0-100.0) fL MCH (28.0-33.3) pg MCHC (31.6-35.5) g/dL RDW (11.5-14.5) % Plt Count (140-400) K/mcL MPV (9.4-12.4) fL Immature Gran % (0-4) % Seg Neutrophils % % Lymphocytes % % Monocytes % % Eosinophils % % Basophils % % Neutrophils # (1.6-8.9) K/mcL Lymphocytes # (0.6-4.6) K/mcL Monocytes # (0.0-1.3) K/mcL Eosinophils # (0.0-0.6) K/mcL Basophils # (0.0-0.2) K/mcL Sodium (136-145) mEq/L Potassium (3.5-5.1) mEq/L Chloride (98-107) mEq/L Carbon Dioxide (23-29) mEq/L BUN (8-23) mg/dL Creatinine (0.60-1.20) mg/dL Est GFR ( Amer) (> 60) Est GFR (Non-Af Amer) (> 60) BUN/Creatinine Ratio (6-26) Glucose (70-105) mg/dL Calculated Osmolality (280-300) Lactic Acid (0.5-2.2) mmol/L Calcium (8.6-10.3) mg/dL Magnesium 2.1 (1.6-2.6) mg/dL Total Bilirubin (0.3-1.0) mg/dL Direct Bilirubin (0.0-0.2) mg/dL Indirect Bilirubin (0.0-1.2) mg/dL AST (13-39) Units/L ALT (7-52) Units/L Alkaline Phosphatase (34-104) Units/L Creatine Kinase 60 (30-223) Units/L Troponin I < 0.03 (< 0.04) ng/mL Serum Total Protein (6.4-8.9) g/dL Albumin (3.5-5.7) g/dL Globulin (2.4-3.5) g/dL Albumin/Globulin Ratio (1.1-2.2) Lipase (11-82) Units/L Urine Color Yellow (Yellow) Urine Clarity Cloudy A (Clear) Urine pH 5.5 (5.0-8.0) pH Units Ur Specific [place] 1.027 H (1.010-1.025) Urine Protein Negative (Neg-Trace) mg/dL Urine Glucose (UA) Normal (Normal) mg/dL Urine Ketones Negative (Negative) mg/dL Urine Blood Negative (Negative) Urine Nitrite Negative (Negative) Urine Bilirubin Small H (Negative) Urine Urobilinogen Normal (Normal) mg/dL Ur Leukocyte Esterase Small H (Negative) Urine Microscopic RBC 5-15 H (0-3) per hpf Urine Microscopic WBC 15-30 H (0-3) per hpf Ur Squamous Epith Cells Many H (None-Few) per lpf Uric Acid Crystals Present Urine Bacteria None Seen (None-Few) per hpf Hyaline Casts Moderate H (None-Few) per lpf Ur Culture Indicated? YES A (NO) Attestation Statement - Attestation Attestation: I have seen this patient with the resident physician, I have personally evaluated this patient. I had reviewed the chart and document dictation by the resident physician and aM in agreement with the information documented by the resident physician. Please see documentation by the resident physician for complete chart including past medical history, family medical history, review of systems, current history and physical and laboratory and imaging studies. I was present for all procedures, provided direct supervision for all procedures, was present for the entirety of all procedures and provided direct guidance during the procedures. Please see documentation by the resident physician for any procedures performed. I have reviewed all interpretations of EKGs, and reviewed all EKGs performed on patient's as well. I have also reviewed reports of imaging as provided by ra hwang.
--- NOTE | 2018-12-15 05:00 | Internal Med History&Physical ---
Date of Encounter: 12/15/18 Time of Encounter: 05:05 Internal Medicine - H&P: HPI Chief complaint: Weakness Admitted From: Emergency Dept History of present illness: Ms. aCo is a 88 year old female Patient presented to the emergency department with weakness. Patient uncooperative with exam, family not available at bedside. Details of history of present illness obtained from previous ER records. She was recently in the hospital and discharged home on November 28 of this year about 2 weeks ago. At that time she was treated for rhabdomyolysis, urinary tract infection, syncope and acute kidney injury. Family preferred to keep the patient at home, however now they feel that the patient is longer safe at home and she should be placed in a prison with [id number] monitoring. She could have falls at home and is feeling weak. Family is unable to keep a close eye on her. Patient's initial vital signs: Blood pressure 161/75, temperature 97.5, pulse 86, respiratory rate 20, 100% on room air CBC unremarkable BMP: Sodium 1:30, creatinine 1.85, GFR 26, glucose 116. Lactic acid of 1.8 Initial troponin undetectable Liver function tests within normal limits Urinalysis: Elevated specific gravity, small leukocyte esterase, negative nitrite, 15-30 white blood cells. EKG: Normal sinus rhythm, rate 84, QTC 418, no ischemic changes Chest x-ray no acute process Emergency department, patient received 2 L of IV fluids. Emergency department contacted social work, and will see the patient in the morning. Upon my evaluation, patient is resting comfortably in the hospital bed in no acute distress. She is uncooperative with exam, and will not answer questions. She states only "just let me sleep." She is DNR CC. Past Med Surg Social Fam HX - Past Medical History Medical history: hypertension, osteoporosis Psychiatric history: no psych history - Past Surgical History Surgical History: no surgical history Additional surgical history: lumbar - Social History Smoking Status: Never smoker Smokeless Tobacco Status: No Alcohol use: none Drug use: none - Family History Mother Living Status: Hx Family Cardiac Disorders: No Hx Family Neurologic Disorders: No Father Living Status: Internal Medicine - H&P: Meds Ketorolac [Toradol] 10 mg PO Q6HR PRN 30 Days #120 tablet 11/28/18 [Rx] Metoprolol [Lopressor] 25 mg PO BID 30 Days #60 tablet 11/28/18 [Rx] Tramadol HCl [Ultram] 50 mg PO BID PRN 30 Days #60 tab 11/28/18 [Rx] Allergy/AdvReac Type Severity Reaction Status Date / Time No Known Allergies Allergy Verified 12/14/18 20:49 ROS unobtainable: other All Systems PM: A 10-system review of systems was performed and is negative for pertinent findings except as documented above in the HPI. Review of systems: Patient refuses to cooperate. - Constitutional Vitals: Temp Pulse Resp BP Pulse Ox 98.0 F 80 18 180/87 98 12/15/18 04:49 12/15/18 04:49 12/15/18 04:49 12/15/18 04:49 12/15/18 04:49 General appearance: Present: no acute distress. Absent: cooperative, answers questions appropriately Exam: - - Head Head exam: Present: normal inspection - Eye Additional comments: Unable to assess, patient would not open eyes - Respiratory Respiratory exam: Present: CTAB. Absent: respiratory distress - Cardiovascular Cardiovascular exam: Present: RRR. Absent: diastolic murmur, systolic murmur - GI/Abdominal GI/Abdominal exam: Present: normal bowel sounds, soft. Absent: tenderness - Extremities Exam Extremities exam: Present: warm, radial pulses palpable and symmetrical. Absent: pedal edema, tenderness - Neurological Exam Additional comments: Unable to assess - Skin Skin exam: Present: dry, normal color, warm Internal Med - H&P Results - Labs CBC & Chem 7: 12/14/18 21:34 12/14/18 21:34 Labs: Short CBC 12/14/18 Range/Units 21:34 WBC 5.9 (4.3-11.1) K/mcL Hgb 12.5 (11.5-15.4) g/dL Hct 38.5 (35.3-44.9) % Plt Count 202 (140-400) K/mcL Neutrophils # 3.5 (1.6-8.9) K/mcL BMP 12/14/18 21:34 Sodium 130 L Potassium 4.7 Chloride 100 Carbon Dioxide 19 L BUN 30 H Creatinine 1.85 H Glucose 116 H Calcium 9.7 Cardiac Enzymes 12/14/18 Range/Units 21:34 Troponin I < 0.03 (< 0.04) ng/mL Liver Function 12/14/18 Range/Units 21:34 Total Bilirubin 0.6 (0.3-1.0) mg/dL Direct Bilirubin 0.1 (0.0-0.2) mg/dL AST 17 (13-39) Units/L ALT 13 (7-52) Units/L Alkaline Phosphatase 68 (34-104) Units/L Albumin 4.2 (3.5-5.7) g/dL Urine 12/14/18 Range/Units 22:11 Urine Color Yellow (Yellow) Urine Clarity Cloudy A (Clear) Urine pH 5.5 (5.0-8.0) pH Units Ur Specific [place] 1.027 H (1.010-1.025) Urine Protein Negative (Neg-Trace) mg/dL Urine Glucose (UA) Normal (Normal) mg/dL - Impressions ITS Impressions Chest X-Ray 12/14/18 21:08 IMPRESSION: No acute disease. D/ / Alvaro Victoria MD / Alvaro Victoria MD Interpreting Provider: Alvaro Victoria MD - Assessment and Plan (1) ANAMARIA (acute kidney injury) Current Visit: Yes Status: Acute Assessment and plan: Patient has elevated creatinine of 1.85. Previously on discharge from creatinine was 0.91. She received 2 L of IV fluids in the emergency department. Follow-up with repeat blood work in the morning Continue IV fluid hydration (2) Weakness Current Visit: Yes Status: Acute Assessment and plan: Patient presents with weakness, and family concerned that she may have falls. There unable to take care of her. Social work consult to get patient placed in a facility. PT OT consult in the morning IV fluid hydration Continue to monitor (3) DVT prophylaxis Current Visit: No Status: Acute Assessment and plan: SCDs - Time Spent With Patient Total time spent is greater than 50% in coordination of care (as documented) at patient's floor/unit and/or counseling patient: Greater than 35 minutes
[2018-12-15] MEDS ORDERED: Naloxone 0.4 MG/ML INJ IVP PRN (05:09)
[2018-12-15] MEDS ORDERED: 0.9 % Sodium Chloride 1,000 ML IVC ONE (05:20)
[2018-12-15 06:12] LABS: Hematocrit 34.2 % (35.3-44.9); Hemoglobin 11.1 g/dL (11.5-15.4); Mean Corpuscular HGB Conc 32.5 g/dL (31.6-35.5); Mean Corpuscular Hemoglobin 30.9 pg (28.0-33.3); Mean Corpuscular Volume 95.3 fL (83.0-100.0); Mean Platelet Volume 10.8 fL (9.4-12.4); Platelet Count 169 K/mcL (140-400); Red Blood Count 3.59 M/mcL (3.82-4.97); Red Cell Distribution Width 13.6 % (11.5-14.5); White Blood Count 4.7 K/mcL (4.3-11.1)
[2018-12-15 06:22] LABS: Calcium 9.1 mg/dL (8.6-10.3); Potassium 4.2 mEq/L (3.5-5.1)
--- NOTE | 2018-12-15 10:26 | Internal Med Progress Note ---
<Daniel Martinez L - Last Filed: 12/15/18 17:15> Hospitalist Progress Note - Encounter Date of Encounter: 12/15/18 Time of Encounter: 10:22 - Subjective Interval History: Patient seen and examined. She is sitting comfortably in bed, denies, chills, chest pain, shortness of breath, abdominal pain, constipation, diarrhea, changes in urination. Patient is hard of hearing, history was obtained from her children. Children reports she has an unclear past medical history due to toxic treatment over the past 15 years or so. She does have a history of vertebral fracture leading to chronic pain, patient is usually not very active at home spending most of her time bed bound. Tramadol, ketorolac Been tried in the past for chronic pain, with unclear results. No known history of Alzheimer's or other neurodegenerative disorders - Exam Vitals: Temp Pulse Resp BP Pulse Ox 98.8 F 89 17 161/57 95 12/15/18 08:19 12/15/18 08:19 12/15/18 08:19 12/15/18 08:19 12/15/18 08:19 Exam: Gen: Vitals noted. No acute distress. Eyes: anicteric sclerae, moist conjunctivae; no lid-lag; Pupils equal and reactive to light HENT: Atraumatic, normocephalic; oropharynx clear with moist mucous membranes and no mucosal ulcerations Neck: Trachea midline; supple, no thyromegaly or lymphadenopathy Cardiac: RRR, no murmurs, rubs or gallops, S1/S2 Pulmonary: CTA bilaterally, no wheezes, rales or rhonchi, equal chest expansion Abdomen: soft, nontender, no rigidity or guarding. No masses or hepatosplenomegaly MSK: ROM intact, no joint swelling noted Extremities: no BLE edema, nontender calf, no cyanosis or clubbing Skin: Normal temperature, turgor and texture; no rash, ulcers or subcutaneous nodules Neuro: moves all extremities, no focal deficits, Upper and lower extremity strength 5/5 Psych: Appropriate mood and behavior. A&Ox3. Pt was able to state her location, the year, and the president, but unable to name the day of the week. - Assessment and Plan (1) ANAMARIA (acute kidney injury) Current Visit: Yes Status: Acute Assessment and Plan: ANAMARIA -Elevated creatinine of 1.85 on admission. -Baseline ~0.90. -secondary to bactrim use vs decreased PO intake -Received two units Normal saline in ED Plan: -Continue IV fluid hydration -Monitor BMP tomorrow (2) Weakness Current Visit: Yes Status: Acute Assessment and Plan: Pt presents with weakness -Pt has history of spinal injury giving her chronic pain -Chronic pain has led to decreased ambulation -Pt spends a lot of time bedbound -Likely deconditioning -No focal deficit Plan: -PT/OT eval -SW for placement in SNF/ECF (3) HTN (hypertension) Current Visit: Yes Status: Chronic Assessment and Plan: Essential HTN - BP trending systolic >160 - Start Amlodipine 5mg daily - Hydralazine 10mg PRN for BP > 170/110 (4) CKD (chronic kidney disease) stage 3, GFR 30-59 ml/min Current Visit: No Status: Chronic Assessment and Plan: CKD stage 3 -eGFR baseline ~ 56 DVT Prophylaxis: SCDs - Time Spent with Patient Total time spent is greater than 50% in coordination of care (as documented) at patient's floor/unit and/or counseling patient: Internal Medicine: Result - Labs CBC & Chem 7: 12/15/18 05:52 12/15/18 05:52 Labs: Short CBC 12/14/18 12/15/18 Range/Units 21:34 05:52 WBC 5.9 4.7 (4.3-11.1) K/mcL Hgb 12.5 11.1 L (11.5-15.4) g/dL Hct 38.5 34.2 L (35.3-44.9) % Plt Count 202 169 (140-400) K/mcL Neutrophils # 3.5 (1.6-8.9) K/mcL BMP 12/14/18 12/15/18 21:34 05:52 Sodium 130 L 132 L Potassium 4.7 4.2 Chloride 100 103 Carbon Dioxide 19 L 22 L BUN 30 H 26 H Creatinine 1.85 H 1.60 H Glucose 116 H 93 Calcium 9.7 9.1 Cardiac Enzymes 12/14/18 Range/Units 21:34 Troponin I < 0.03 (< 0.04) ng/mL Liver Function 12/14/18 Range/Units 21:34 Total Bilirubin 0.6 (0.3-1.0) mg/dL Direct Bilirubin 0.1 (0.0-0.2) mg/dL AST 17 (13-39) Units/L ALT 13 (7-52) Units/L Alkaline Phosphatase 68 (34-104) Units/L Albumin 4.2 (3.5-5.7) g/dL Urine 12/14/18 Range/Units 22:11 Urine Color Yellow (Yellow) Urine Clarity Cloudy A (Clear) Urine pH 5.5 (5.0-8.0) pH Units Ur Specific [place] 1.027 H (1.010-1.025) Urine Protein Negative (Neg-Trace) mg/dL Urine Glucose (UA) Normal (Normal) mg/dL - Impressions Impressions Chest X-Ray 12/14/18 21:08 IMPRESSION: No acute disease. D/ / Alvaro Victoria MD / Alvaro Victoria MD Interpreting Provider: Alvaro Victoria MD Consult Discharge Plan - Plan Referrals: NONE,PCP [Primary Care Provider] - <Hector Salinas - Last Filed: 12/15/18 17:33> Hospitalist Progress Note - Encounter Date of Encounter: 12/15/18 - Exam Vitals: Temp Pulse Resp BP Pulse Ox 98.0 F 77 18 185/77 96 12/15/18 17:23 12/15/18 17:23 12/15/18 17:23 12/15/18 17:23 12/15/18 17:23 - Assessment and Plan (1) DVT prophylaxis Current Visit: No Status: Acute (2) Weakness Current Visit: Yes Status: Acute (3) ANAMARIA (acute kidney injury) Current Visit: Yes Status: Acute - Time Spent with Patient Total time spent is greater than 50% in coordination of care (as documented) at patient's floor/unit and/or counseling patient: Internal Medicine: Result - Labs CBC & Chem 7: 12/15/18 05:52 12/15/18 05:52 Labs: Short CBC 12/14/18 12/15/18 Range/Units 21:34 05:52 WBC 5.9 4.7 (4.3-11.1) K/mcL Hgb 12.5 11.1 L (11.5-15.4) g/dL Hct 38.5 34.2 L (35.3-44.9) % Plt Count 202 169 (140-400) K/mcL Neutrophils # 3.5 (1.6-8.9) K/mcL BMP 12/14/18 12/15/18 21:34 05:52 Sodium 130 L 132 L Potassium 4.7 4.2 Chloride 100 103 Carbon Dioxide 19 L 22 L BUN 30 H 26 H Creatinine 1.85 H 1.60 H Glucose 116 H 93 Calcium 9.7 9.1 Cardiac Enzymes 12/14/18 Range/Units 21:34 Troponin I < 0.03 (< 0.04) ng/mL Liver Function 12/14/18 Range/Units 21:34 Total Bilirubin 0.6 (0.3-1.0) mg/dL Direct Bilirubin 0.1 (0.0-0.2) mg/dL AST 17 (13-39) Units/L ALT 13 (7-52) Units/L Alkaline Phosphatase 68 (34-104) Units/L Albumin 4.2 (3.5-5.7) g/dL Urine 12/14/18 Range/Units 22:11 Urine Color Yellow (Yellow) Urine Clarity Cloudy A (Clear) Urine pH 5.5 (5.0-8.0) pH Units Ur Specific [place] 1.027 H (1.010-1.025) Urine Protein Negative (Neg-Trace) mg/dL Urine Glucose (UA) Normal (Normal) mg/dL - Impressions Impressions Chest X-Ray 12/14/18 21:08 IMPRESSION: No acute disease. D/ / Alvaro Victoria MD / Alvaro Victoria MD Interpreting Provider: Alvaro Victoria MD - Attending Attestation I have seen and independently assessed this patient and I agree with plan as documented Plan Weakness and Acute kidney injury. Likely 2/2 to dehydration and bactrim. Continue IV fluids. Monitor BMP Disposition. PT and OT recs for discharge planning <Daniel Martinez Filed: 12/15/18 17:15> (3) HTN (hypertension) Qualifiers: Hypertension type: essential hypertension Qualified Code(s): I10 - Essential (primary) hypertension
[2018-12-15] MEDS: 0.9 % Sodium Chloride 1,000 ML IVC SCH (16:21)
[2018-12-16 05:15] LABS: Basophils % 0.6 %; Eosinophils # 0.3 K/mcL (0.0-0.6); Eosinophils % 5.2 %; Hematocrit 37.9 % (35.3-44.9); Hemoglobin 11.9 g/dL (11.5-15.4); Lymphocytes # 2.2 K/mcL (0.6-4.6); Lymphocytes % 43.8 %; Mean Corpuscular HGB Conc 31.4 g/dL (31.6-35.5); Mean Corpuscular Hemoglobin 30.4 pg (28.0-33.3); Mean Corpuscular Volume 96.7 fL (83.0-100.0); Mean Platelet Volume 11.2 fL (9.4-12.4); Monocytes # 0.6 K/mcL (0.0-1.3); Monocytes % 12.5 %; Neutrophils # 1.9 K/mcL (1.6-8.9); Platelet Count 185 K/mcL (140-400); Red Blood Count 3.92 M/mcL (3.82-4.97); Red Cell Distribution Width 14.1 % (11.5-14.5); Segmented Neutrophils % 37.9 %
[2018-12-16 05:38] LABS: Potassium 3.9 mEq/L (3.5-5.1)
[2018-12-16] MEDS: 0.9 % Sodium Chloride 1,000 ML IVC SCH (05:51)
[2018-12-16] MEDS ORDERED: amLODIPine 5 MG TABLET PO SCH (09:00)
--- NOTE | 2018-12-16 09:48 | Internal Med Progress Note ---
<Hector Slainas - Last Filed: 12/16/18 13:05> Hospitalist Progress Note - Encounter Date of Encounter: 12/16/18 - Exam Vitals: Temp Pulse Resp BP Pulse Ox 97.9 F 83 20 185/71 97 12/16/18 11:31 12/16/18 11:31 12/16/18 11:31 12/16/18 11:31 12/16/18 11:31 - Assessment and Plan (1) DVT prophylaxis Current Visit: No Status: Acute (2) Weakness Current Visit: Yes Status: Acute (3) ANAMARIA (acute kidney injury) Current Visit: Yes Status: Acute - Time Spent with Patient Total time spent is greater than 50% in coordination of care (as documented) at patient's floor/unit and/or counseling patient: Internal Medicine: Result - Labs CBC & Chem 7: 12/16/18 03:58 12/16/18 03:58 Labs: Short CBC 12/16/18 Range/Units 03:58 WBC 5.0 (4.3-11.1) K/mcL Hgb 11.9 (11.5-15.4) g/dL Hct 37.9 (35.3-44.9) % Plt Count 185 (140-400) K/mcL Neutrophils # 1.9 (1.6-8.9) K/mcL BMP 12/16/18 03:58 Sodium 137 Potassium 3.9 Chloride 108 H Carbon Dioxide 20 L BUN 21 Creatinine 1.21 H Glucose 99 Calcium 9.0 Consult Discharge Plan - Plan Referrals: NONE,PCP [Primary Care Provider] - (Need SNF placement) - Attending Attestation I have seen and independently assessed this patient and I agree with plan as documented Plan Weakness and Acute kidney injury. Likely 2/2 to dehydration and bactrim. Continue IV fluids. Monitor BMP. Bactrim discontinued. ANAMARIA improved Disposition. PT and OT recs for discharge planning <Daniel Martinez - Last Filed: 12/16/18 13:22> Hospitalist Progress Note - Encounter Date of Encounter: 12/16/18 Time of Encounter: 09:46 - Subjective Interval History: Patient seen and examined. States that she is not feeling well, reports feeling weak and tired. Patient has little appetite, did not sleep very well last night. Patient's BP was controlled with when necessary hydralazine overnight. IV fluids are still running, kidney function is improving. Patient's children are working with social work to find ECF placement for patient upon discharge. Patient denies headache, chest pain, shortness of breath, nausea, vomiting, constipation, diarrhea, changes in urination. - Exam Vitals: Temp Pulse Resp BP Pulse Ox 97.8 F 88 18 181/67 96 12/16/18 07:44 12/16/18 07:44 12/16/18 07:44 12/16/18 07:44 12/16/18 07:44 Exam: Gen: Vitals noted. No acute distress. Patient sitting up in bed. Appears tired and disheveled Eyes: anicteric sclerae, moist conjunctivae; no lid-lag; Pupils equal and reactive to light HENT: Atraumatic, normocephalic; oropharynx clear with moist mucous membranes and no mucosal ulcerations Neck: Trachea midline; supple, no thyromegaly or lymphadenopathy Cardiac: RRR, no murmurs, rubs or gallops, S1/S2 Pulmonary: CTA bilaterally, no wheezes, rales or rhonchi, equal chest expansion Abdomen: soft, nontender, no rigidity or guarding. No masses or hepatosplenomegaly MSK: ROM intact, no joint swelling noted Extremities: no BLE edema, nontender calf, no cyanosis or clubbing Skin: Normal temperature, turgor and texture; no rash, ulcers or subcutaneous nodules Neuro: moves all extremities, no focal deficits, Upper and lower extremity strength 5/5 Psych: Appropriate mood and behavior. Pt has some memory issues, not oriented to current situation - Assessment and Plan (1) ANAMARIA (acute kidney injury) Current Visit: Yes Status: Acute Assessment and Plan: ANAMARIA -Elevated creatinine of 1.85 on admission. -Baseline ~0.90. -secondary to bactrim use vs decreased PO intake -Kidney function improving Plan: -Continue IV fluid hydration -Monitor BMP tomorrow (2) Weakness Current Visit: Yes Status: Acute Assessment and Plan: Pt presents with weakness -Pt has history of spinal injury giving her chronic pain -Chronic pain has led to decreased ambulation -Pt spends a lot of time bedbound -Likely deconditioning -No focal deficit Plan: -PT/OT: will benefit from acute care PT. Recommends D/C to SNF -SW for placement in SNF/ECF (3) HTN (hypertension) Current Visit: Yes Status: Chronic Assessment and Plan: Essential HTN - BP remains elevated - Start Amlodipine 5mg daily, will increase if trend does not improve - Hydralazine 10mg PRN for BP > 170/110 (4) CKD (chronic kidney disease) stage 3, GFR 30-59 ml/min Current Visit: No Status: Chronic Assessment and Plan: CKD stage 3 -eGFR baseline ~ 56 DVT Prophylaxis: SCDs - Time Spent with Patient Total time spent is greater than 50% in coordination of care (as documented) at patient's floor/unit and/or counseling patient: Internal Medicine: Result - Labs CBC & Chem 7: 12/16/18 03:58 12/16/18 03:58 Labs: Short CBC 12/16/18 Range/Units 03:58 WBC 5.0 (4.3-11.1) K/mcL Hgb 11.9 (11.5-15.4) g/dL Hct 37.9 (35.3-44.9) % Plt Count 185 (140-400) K/mcL Neutrophils # 1.9 (1.6-8.9) K/mcL BMP 12/16/18 03:58 Sodium 137 Potassium 3.9 Chloride 108 H Carbon Dioxide 20 L BUN 21 Creatinine 1.21 H Glucose 99 Calcium 9.0 <Daniel Martinez L - Last Filed: 12/16/18 13:22> (3) HTN (hypertension) Qualifiers: Hypertension type: essential hypertension Qualified Code(s): I10 - Essential (primary) hypertension
--- NOTE | 2018-12-16 14:56 | Discharge Summary ---
<Daneil Martinez L - Last Filed: 12/16/18 17:40> - NOTES TO OUTPATIENT PROVIDER Notes to Outpatient Provider: Pt was admitted and treated for Acute kidney injury and generalized weakness. Pt has had reduced PO intake recently as well as recent Bactrim course for UTI. Encourage PO water, follow-up with primary ca re from ECF. Need for PT. Check patient's appetite, has been decreased lately. Discharged on amlodipine 5 mg daily. Orders not resulted at time of discharge: Pending orders 12/14/18 21:08 EKG [ECG 12 lead ECG] [ECG] Stat Date of Encounter: 12/16/18 Time of Encounter: 14:54 - Discharge Diagnosis (1) ANAMARIA (acute kidney injury) Priority: Primary Status: Acute (2) Weakness Priority: Primary Status: Acute (3) HTN (hypertension) Priority: Secondary Status: Chronic Qualifiers: Hypertension type: essential hypertension Qualified Code(s): I10 - Essential (primary) hypertension (4) CKD (chronic kidney disease) stage 3, GFR 30-59 ml/min Priority: Secondary Status: Chronic Hospital course: Ms. Cao is a 88 year old female with past medical history of hypertension, and osteoporosis. She presented to the emergency department with weakness. She was recently in the hospital and discharged home on November 28 of this year. At that time she was treated for rhabdomyolysis following a fall where she was down for about 8 hours, a urinary tract infection, syncope and acute kidney injury. Family attempted to keep patient home after that stay, however they feel that patient is no longer safe at home and was interested in care home placement. On admission patient was hypertensive, afebrile, chest x-ray was unremarkable, EKG was unremarkable, BMP indicated acute kidney injury with hyponatremia. Patient was treated with IV fluid hydration. Patient's kidney function and electrolytes improved quickly. Patient's mental status was somewhat decreased on admission. She was oriented to person and place but not time. Patient's family states that she has been this way for the past few weeks/months. Mental status did not improve with correction of electrolytes. Patient was seen by a PT/OT due to increased weakness, and need for assistance with ADLs at home. Social work was consulted for placement patient into an extended care facility on discharge. Kidney function and electrolyte abnormalities improved to near baseline before discharge. Patient was discharged to extended care facility along with physical therapy recommendations and instructions follow-up with primary care provider in 5-7 days. - Time Spent with Patient Total time spent providing and/or coordinating discharge services: - Discharge Medications Prescriptions: New amLODIPine [Norvasc] 5 mg PO DAILY #30 tablet Continued Ketorolac [Toradol] 10 mg PO Q6HR PRN 30 Days #120 tablet PRN Reason: Pain Tramadol HCl [Ultram] 50 mg PO BID PRN 30 Days #60 tab PRN Reason: Pain Discontinued Sulfamethoxazole/Trimeth DS [Bactrim Ds] 1 tab PO BID Home Medications: Ketorolac [Toradol] 10 mg PO Q6HR PRN 30 Days #120 tablet 11/28/18 [Rx] Tramadol HCl [Ultram] 50 mg PO BID PRN 30 Days #60 tab 11/28/18 [Rx] amLODIPine [Norvasc] 5 mg PO DAILY #30 tablet 12/16/18 [Rx] Allergies/Adverse Reactions: Allergy/AdvReac Type Severity Reaction Status Date / Time No Known Allergies Allergy Verified 12/15/18 10:09 Date of admission: 12/14/18 23:07 Primary care physician: PCP NONE Consults: 12/15/18 05:21 Consult to Occupational Therapy [CONS] Routine Comment: Evaluate, develop and implement POC Reason for Consult: Weakness Does patient have active BEDREST order?: No Is patient medically & hemodynamically stable?: Yes Patient assessed for mobility or mobilized this visit?: No Consult to Physical Therapy [CONS] Routine Comment: Evaluate, develop and implement POC Reason for Consult: Weakness Does patient have active BEDREST order?: No Is patient medically & hemodynamically stable?: Yes Patient assessed for mobility or mobilized this visit?: No 12/15/18 05:26 Consult to Part Maker [CONS] Routine Reason for SW Consult: Weakness, care home placement. Family not able to care for her. Discharging clinician: Daniel Martinez Anticipated date of discharge: 12/16/18 - Constitutional Vitals: Temp Pulse Resp BP Pulse Ox 97.9 F 83 20 185/71 97 12/16/18 11:31 12/16/18 11:31 12/16/18 11:31 12/16/18 11:31 12/16/18 11:31 General appearance: Present: no acute distress. Absent: cooperative, answers questions appropriately Exam: Gen: Vitals noted. No acute distress. Patient sitting up in bed. Appears tired and disheveled Eyes: anicteric sclerae, moist conjunctivae; no lid-lag; Pupils equal and reactive to light HENT: Atraumatic, normocephalic; oropharynx clear with moist mucous membranes and no mucosal ulcerations Neck: Trachea midline; supple, no thyromegaly or lymphadenopathy Cardiac: RRR, no murmurs, rubs or gallops, S1/S2 Pulmonary: CTA bilaterally, no wheezes, rales or rhonchi, equal chest expansion Abdomen: soft, nontender, no rigidity or guarding. No masses or hepa tosplenomegaly MSK: ROM intact, no joint swelling noted Extremities: no BLE edema, nontender calf, no cyanosis or clubbing Skin: Normal temperature, turgor and texture; no rash, ulcers or subcutaneous nodules Neuro: moves all extremities, no focal deficits, Upper and lower extremity strength 5/5 Psych: Appropriate mood and behavior. Pt has some memory issues, not oriented to current situation - Patient Status Disposition: Transfer SNF Condition: Fair - Discharge Instructions Follow Up With: NONE,PCP [Primary Care Provider] - (Need SNF placement) Daniel Martinez MD [Resident] - <Hector Salinas - Last Filed: 12/16/18 17:52> Orders not resulted at time of discharge: Pending orders 12/14/18 21:08 EKG [ECG 12 lead ECG] [ECG] Stat Date of Encounter: 12/16/18 - Discharge Diagnosis (1) DVT prophylaxis Status: Acute (2) Weakness Status: Acute (3) ANAMARIA (acute kidney injury) Status: Acute Hospital course: Ms. Cao is a 88 year old female - Time Spent with Patient Total time spent providing and/or coordinating discharge services: Date of admission: 12/14/18 23:07 Primary care physician: PCP NONE Consults: 12/15/18 05:21 Consult to Occupational Therapy [CONS] Routine Comment: Evaluate, develop and implement POC Reason for Consult: Weakness Does patient have active BEDREST order?: No Is patient medically & hemodynamically stable?: Yes Patient assessed for mobility or mobilized this visit?: No Consult to Physical Therapy [CONS] Routine Comment: Evaluate, develop and implement POC Reason for Consult: Weakness Does patient have active BEDREST order?: No Is patient medically & hemodynamically stable?: Yes Patient assessed for mobility or mobilized this visit?: No 12/15/18 05:26 Consult to Part Maker [CONS] Routine Reason for SW Consult: Weakness, care home placement. Family not able to care for her. - Constitutional Vitals: Temp Pulse Resp BP Pulse Ox 98.7 F 86 14 132/56 97 12/16/18 15:15 12/16/18 15:15 12/16/18 15:15 12/16/18 15:15 12/16/18 15:15 - Attending Attestation I have seen and independently assessed this patient and I agree with plan as documented Exam Gen. NAD CVs. S1 S2 WNL Resp. CTAB GI. SOft, NT, ND, +BS Plan Weakness and Acute kidney injury. Likely 2/2 to dehydration and bactrim. Continue IV fluids. Monitor BMP. Bactrim discontinued. ANAMARIA improved Disposition. PT and OT recs for discharge planning. Okay for discharge to SNF today
--- NOTE | 2018-12-16 15:30 | Physician Discharge Referral ---
ExtendedCare Referral Info Transfer To: ECF Provider in Charge after Transfer: PCP Institutional Level of Care: Skilled - Diagnosis (1) ANAMARIA (acute kidney injury) Priority: Primary Status: Acute (2) Weakness Priority: Secondary Status: Acute (3) HTN (hypertension) Priority: Secondary Status: Chronic (4) CKD (chronic kidney disease) stage 3, GFR 30-59 ml/min Priority: Secondary Status: Chronic - Transfer Medications Prescriptions: amLODIPine [Norvasc] 5 mg PO DAILY #30 tablet Home Medications: Ketorolac [Toradol] 10 mg PO Q6HR PRN 30 Days #120 tablet 11/28/18 [Rx] Tramadol HCl [Ultram] 50 mg PO BID PRN 30 Days #60 tab 11/28/18 [Rx] amLODIPine [Norvasc] 5 mg PO DAILY #30 tablet 12/16/18 [Rx] Allergies/Adverse Reactions: Allergy/AdvReac Type Severity Reaction Status Date / Time No Known Allergies Allergy Verified 12/15/18 10:09 - Respiratory Orders None Smoking Cessation: Smoking cessation has been advised. For more information, call the [place] Tobacco Quit Line at 0-786-TXDP-NOW. CERTIFICATION: I certify that the transfer of the above named patient to an Extended Care Facility is necessary for the continuing treatment of the diagnosis listed. The above information is true and accurate reflection of patient's current condition. Confidential - Redisclosure prohibited without a patient's written consent.
[2018-12-16 16:59] VITALS: BP 132/56
--- NOTE | 2018-12-17 23:30 | Electrocardiograph Report ---
[place] [email or web address] [facility] Test Date: 2018-12-14 Pat Name: Gissell Cao Department: [id number] Room: 2A13 Gender: F [employer]vict Guard: : [id number] Requested By: Rj Pa Order Number: [id number] Reading MD: Best Smith Measurements Intervals [place] Rate: 84 P: 83 AR: 177 QRS: 51 QRSD: 86 T: 71 QT: 353 QTc: 418 Interpretive Statements Sinus rhythm Electronically Signed On 12-17-2018 23:28:29 EDT by Best Smith
== END 2018-12-16 17:38 ==
LOC: EMEROOARM 20:38 → CDU 20:38 → 2ANU 12-15 17:10
PROVIDERS: ADMIT Internal Medicine; ATTEND Internal Medicine